=== PATIENT | female | born 1955 | race Caucasian/White ===

== ENCOUNTER 2020-04-01 09:15 | Outpatient (REF) | payer MEDICARE, MEDICAID, SELFPAY ==
[2020-04-01 11:30] LABS: Creatinine Urine 77.31 mg/dL; Microalbum/Creatinine Ratio Ur 7.7 ug/mg cr
== END 2020-04-01 09:16 | disposition home or self-care (01) ==
LOC: HO.LAB 09:15
PROVIDERS: PCP Physician Assistant; Visit Provider Nurse Practitioner Gerontology
DX: E11.42 Type 2 diabetes mellitus with diabetic polyneuropathy (principal)
CPT/HCPCS: 82043

== ENCOUNTER 2020-04-01 09:45 | Outpatient (REF) | payer MEDICARE, MEDICAID, SELFPAY | END 2020-04-01 09:46 | disposition home or self-care (01) | LOC: HO.LAB 09:45 | PROVIDERS: PCP Physician Assistant; Visit Provider Internal Medicine | DX: Z20.828 Contact with and (suspected) exposure to other viral communicable diseases (principal) | CPT/HCPCS: 82043; C9803; U0003 ==

== ENCOUNTER → 2020-04-06 12:15 | Outpatient (BNVA) | payer MEDICARE, MEDICAID, SELFPAY | PROVIDERS: PCP Physician Assistant; Visit Provider Nurse Practitioner Gerontology | DX: E11.42 Type 2 diabetes mellitus with diabetic polyneuropathy (principal); E78.5 Hyperlipidemia, unspecified | CPT/HCPCS: 82947; 99212 ==

== ENCOUNTER → 2020-07-28 12:58 | Outpatient (BNVA) | payer MEDICARE, MEDICAID, SELFPAY | PROVIDERS: PCP Physician Assistant; Visit Provider Nurse Practitioner Gerontology | DX: E11.42 Type 2 diabetes mellitus with diabetic polyneuropathy (principal); E66.09 Other obesity due to excess calories; E78.5 Hyperlipidemia, unspecified | CPT/HCPCS: 82947; 99212 ==

== ENCOUNTER 2020-08-03 14:19 | Outpatient (REF) | payer MEDICARE, MEDICAID, SELFPAY ==
--- NOTE | ~2020-08-03 | US_ITS ---
EXAMINATION: US DIAGNOSTIC ULTRASOUND BREAST, RIGHT CLINICAL INFORMATION: 65-year-old complains of pain lateral right breast. There is prior history posterior left breast calcifications recommended for stereotactic sampling, not performed. Patient due for bilateral mammography but declined by patient at time of appointment. COMPARISON: Mammography 12/24/2019 (left), 05/30/2019, 04/25/2019, 04/01/2019 (bilateral). TECHNIQUE: Ultrasound right breast is targeted to the area of clinical concern noted by patient 7:00 through 11:00 position. Grayscale imaging and color Doppler are performed without and with harmonics. FINDINGS: Ultrasound demonstrates no cystic or solid mass or architectural abnormality in the targeted area. There is no skin thickening or edema tracking in soft tissue planes. No focal duct ectasia. Results are discussed with the patient at time of visit, using an lang interpreter. Patient declined mammography at this appointment. Patient advised that she is past due for diagnostic mammography follow-up of the left breast calcifications previously recommended for biopsy, as well as past due for annual mammography contralateral right breast. US/US breast RT limited IMPRESSION: 1. Unremarkable targeted ultrasound outer right breast. 2. Patient declined mammography. ASSESSMENT: BI-RADS 1: Negative RECOMMENDATION: 1. Bilateral diagnostic mammography to include magnification views calcifications left breast. 2. Patient's right breast pain should be managed based on the clinical impression. This patient's information was entered into a reminder system with a target due date for their next mammogram.
== END 2020-08-03 14:20 | disposition home or self-care (01) ==
LOC: HO.MAMMO 14:19
PROVIDERS: Visit Provider Surgery
DX: N60.91 Unspecified benign mammary dysplasia of right breast (principal); R92.0 Mammographic microcalcification found on diagnostic imaging of breast; Z91.89 Other specified personal risk factors, not elsewhere classified
CPT/HCPCS: 76642

== ENCOUNTER → 2020-08-05 11:36 | Outpatient (BNVA) | payer MEDICARE, MEDICAID, SELFPAY | PROVIDERS: PCP Physician Assistant; Visit Provider Surgery | DX: N60.91 Unspecified benign mammary dysplasia of right breast (principal) | CPT/HCPCS: 99212 ==

== ENCOUNTER 2020-08-14 08:20 | Outpatient (REF) | payer MEDICARE, MEDICAID, SELFPAY ==
--- NOTE | ~2020-08-14 | MM_ITS ---
EXAMINATION: MM DIAGNOSTIC DIGITAL BREAST TOMOSYNTHESIS, BILATERAL CLINICAL INFORMATION: Due for yearly. Also short interval follow-up left breast calcifications recommended for stereotactic biopsy 04/25/2019. Prior history contralateral right breast ALH status post excision 10/18/2018. The lifetime risk of breast cancer based on the Tyrer-Cuzick Model is 42%. COMPARISON: Mammography: 12/24/2019, 04/25/2019 (BI-RADS 4), 04/01/2019 (BI-RADS 0), 03/05/2018 TECHNIQUE: Digital breast tomosynthesis is performed in both the craniocaudal and mediolateral oblique views along with computer-aided detection (CAD). Synthesized 2D images are generated from the tomosynthesis. Additional views are obtained: Exaggerated left CC, magnification left CC, magnification left ML. FINDINGS: The breasts are heterogeneously dense, which may obscure small masses (ACR BI-RADS breast composition Category c). The right breast has post therapy changes posterior 9:00 position consistent with the prior lumpectomy 2018. There is no interval mass or architectural abnormality or abnormal calcifications. There are scattered calcifications some punctate and coarse again noted. The left breast shows no interval mass or architectural abnormality or developing density. Again, there are vascular calcifications central upper outer breast and some scattered benign round and coarse calcifications. The grouped calcifications for follow-up posterior upper outer left breast that have been recommended for stereotactic sampling appear stable. Results are discussed with the patient at time of visit, using an calender tender. Stereotactic sampling discussed with the patient. As before, patient prefers serial follow-up. She also notes follow-up appointment with surgeon pending this year. MM/MM tomosynthesis diagnostic BI IMPRESSION: 1. Left: No significant changes from prior diagnostic studies. The grouped calcifications posterior upper outer quadrant previously recommended for sampling are stable. 2. Right: No mammographic evidence of malignancy. ASSESSMENT: BI-RADS 3: Probably Benign RECOMMENDATION: Diagnostic left mammography to include magnification views, in 6 months. This patient's information was entered into a reminder system with a target due date for their next mammogram.
== END 2020-08-14 08:21 | disposition home or self-care (01) ==
LOC: HO.MAMMO 08:20
PROVIDERS: Visit Provider Surgery
DX: R92.1 Mammographic calcification found on diagnostic imaging of breast (principal); Z85.3 Personal history of malignant neoplasm of breast
CPT/HCPCS: 77062; 77066

== ENCOUNTER 2021-01-22 10:05 | Outpatient (REF) | payer MEDICARE, SELFPAY ==
[2021-01-22 11:04] LABS: Estimated Average Glucose 146 mg/dL; Hemoglobin A1c % 6.7 %
[2021-01-22 11:14] LABS: Hematocrit 38.4 % (37-47); Hemoglobin 12.6 g/dl (12.0-16.0); Mean Corpuscular HGB Conc 32.8 g/dl (31.0-35.0); Mean Corpuscular Volume 91.4 fL (80-98); Mean Platelet Volume 9.2 fL (9.4-12.3); Platelet Count 238 X10*3/uL (160-400); Red Cell Distribution Width 12.7 % (11.0-16.0); White Blood Count 6.6 X10*3/uL (4.8-10.8)
[2021-01-22 11:17] LABS: Alanine Aminotransferase 13 U/L (0-31); Albumin Level 4.3 g/dL (3.5-5.0); Alkaline Phosphatase 112 U/L (39-117); Anion Gap 12 (12-20); Aspartate Amino Transferase 18 U/L (5-31); Bilirubin Direct 0.2 mg/dL (0.0-0.5); Bilirubin Total 0.6 mg/dL (0.0-1.0); Blood Urea Nitrogen 11 mg/dL (9-16); Calcium 9.5 mg/dL (8.4-10.2); Carbon Dioxide 27 mmol/L (22-29); Chloride 105 mmol/L (96-108); Cholesterol 175 mg/dL; Estimated Glomerular Filt Rate > 60; Glucose Random 137 mg/dL (60-115); HDL Cholesterol 32 mg/dL; LDL Cholesterol Calculated 102 mg/dl; Potassium 4.4 mmol/L (3.3-5.1); Sodium 140 mmol/L (135-145); Total Protein 7.4 g/dL (6.5-8.0); Triglycerides 208 mg/dL
[2021-01-22 11:39] LABS: Thyroid Stimulating Hormone 2.69 uIU/mL (0.32-4.0)
[2021-01-22 11:49] LABS: Folate 12.6 ng/mL (> or = 4.0); Vitamin B12 507 pg/mL (200-900)
[2021-01-27 13:36] LABS: Vitamin D 25-OH, D2 <4 ng/mL; Vitamin D 25-OH, D3 15 ng/mL; Vitamin D 25-OH, Total 15 ng/mL (30-100)
== END 2021-01-22 10:06 | disposition home or self-care (01) ==
LOC: HO.LAB 10:05
PROVIDERS: Nurse Practitioner Gerontology; PCP Physician Assistant; Visit Provider Internal Medicine
DX: E11.42 Type 2 diabetes mellitus with diabetic polyneuropathy (principal)
CPT/HCPCS: 36415; 80048; 80061; 80076; 82306; 82607; 82746; 83036; 84443; 85027

== ENCOUNTER → 2021-02-02 09:29 | Outpatient (BNVA) | payer MEDICARE, SELFPAY | PROVIDERS: PCP Physician Assistant; Referring Provider Physician Assistant; Visit Provider Surgery | DX: N60.91 Unspecified benign mammary dysplasia of right breast (principal) | CPT/HCPCS: 99212 ==

== ENCOUNTER 2021-02-25 11:10 | Outpatient (REF) | payer MEDICARE, SELFPAY ==
[2021-02-25 13:34] LABS: Creatinine Urine 31.25 mg/dL; Microalbumin Urine < 5.0 mg/L
== END 2021-02-25 11:11 | disposition home or self-care (01) ==
LOC: HO.LAB 11:10
PROVIDERS: PCP Physician Assistant; Visit Provider Nurse Practitioner Gerontology
DX: E11.42 Type 2 diabetes mellitus with diabetic polyneuropathy (principal); E78.5 Hyperlipidemia, unspecified; E66.09 Other obesity due to excess calories; Z68.31 Body mass index [BMI] 31.0-31.9, adult; Z71.3 Dietary counseling and surveillance; Z79.84 Long term (current) use of oral hypoglycemic drugs
CPT/HCPCS: 82043; 82947; 99212

== ENCOUNTER → 2021-03-02 10:05 | Outpatient (BNVA) | payer MEDICARE, SELFPAY | PROVIDERS: Visit Provider Obstetrics & Gynecology | DX: N89.8 Other specified noninflammatory disorders of vagina (principal) | CPT/HCPCS: 99202 ==

== ENCOUNTER 2021-04-28 09:51 | Outpatient (REF) | payer MEDICARE, SELFPAY | END 2021-04-28 09:52 | disposition home or self-care (01) | LOC: HO.LAB 09:51 | PROVIDERS: Visit Provider Obstetrics & Gynecology | DX: N89.8 Other specified noninflammatory disorders of vagina (principal) | CPT/HCPCS: 56605; 88305; 88312 ==

== ENCOUNTER 2021-05-19 10:36 | Outpatient (REF) | payer MEDICARE, SELFPAY ==
--- NOTE | ~2021-05-19 | MM_ITS ---
EXAMINATION: MM DIAGNOSTIC DIGITAL BREAST TOMOSYNTHESIS, LEFT CLINICAL INFORMATION: Stereotactic sampling recommended for grouped calcifications posterior upper outer left breast. Tissue sampling declined by patient. Prior history contralateral right breast ALH/LCIS excision 10/18/2018. The lifetime risk of breast cancer based on the Tyrer-Cuzick Model is 24%. COMPARISON: Mammography: 08/14/2020, 12/24/2019, 05/30/2019, 04/25/2019, 04/01/2019 (BI-RADS 0) TECHNIQUE: Digital breast tomosynthesis is performed in both the craniocaudal and mediolateral oblique views along with computer-aided detection (CAD). Synthesized 2D images are generated from the tomosynthesis. Additional CC view, magnification CC, and magnification ML x2 views are obtained. FINDINGS: The breasts are heterogeneously dense, which may obscure small masses (ACR BI-RADS breast composition Category c). Fibronodular parenchymal pattern is similar to prior studies. No developing density or interval mass or architectural abnormality. There are scattered round and vascular calcifications again seen. The grouped calcifications posterior upper outer quadrant previously recommended for stereotactic sampling are without significant change from prior diagnostic exams. Results are provided to the patient at time of visit by the technologist. MM/MM tomosynthesis diagnostic LT IMPRESSION: Grouped calcifications recommended for stereotactic sampling are without significant change from prior diagnostic exams. ASSESSMENT: BI-RADS 3: Probably Benign RECOMMENDATION: 1. Magnification views left breast at time of annual bilateral mammography, due in 6 months. 2. The lifetime risk of breast cancer based on the Tyrer-Cuzick Model is 24%. Additional annual adjunct screening with breast MRI may be of benefit in women with a risk score of 20% or greater and dense breast parenchymal pattern. This patient's information was entered into a reminder system with a target due date for their next mammogram.
== END 2021-05-19 10:37 | disposition home or self-care (01) ==
LOC: HO.MAMMO 10:36
PROVIDERS: PCP Physician Assistant; Visit Provider Surgery
DX: R92.1 Mammographic calcification found on diagnostic imaging of breast (principal); N89.8 Other specified noninflammatory disorders of vagina; N90.89 Other specified noninflammatory disorders of vulva and perineum; E78.5 Hyperlipidemia, unspecified; E03.9 Hypothyroidism, unspecified; E11.42 Type 2 diabetes mellitus with diabetic polyneuropathy; E66.09 Other obesity due to excess calories; F17.210 Nicotine dependence, cigarettes, uncomplicated
CPT/HCPCS: 77061; 77065; Q3014

== ENCOUNTER → 2021-06-09 10:02 | Outpatient (BNVA) | payer MEDICARE, SELFPAY | PROVIDERS: Visit Provider Obstetrics & Gynecology | DX: Z13.89 Encounter for screening for other disorder (principal) ==

== ENCOUNTER → 2021-08-26 10:53 | Outpatient (BNVA) | payer MEDICARE, SELFPAY | PROVIDERS: PCP Physician Assistant; Visit Provider Nurse Practitioner Gerontology | DX: E11.42 Type 2 diabetes mellitus with diabetic polyneuropathy (principal); E78.5 Hyperlipidemia, unspecified; E66.09 Other obesity due to excess calories; Z68.31 Body mass index [BMI] 31.0-31.9, adult | CPT/HCPCS: 82947; 83036; 99212 ==

== ENCOUNTER 2022-01-31 10:11 | Outpatient (REF) | payer MEDICARE, SELFPAY ==
[2022-01-31 11:42] LABS: Hematocrit 38.6 % (37.0-47.0); Hemoglobin 12.7 g/dl (12.0-16.0); Mean Corpuscular HGB Conc 32.9 g/dl (31.0-35.0); Mean Corpuscular Hemoglobin 30.3 pg (27.0-33.0); Mean Corpuscular Volume 92.1 fL (80.0-98.0); Mean Platelet Volume 9.6 fL (9.4-12.3); Platelet Count 262 X10*3/uL (160-400); Red Blood Count 4.19 X10*6/uL (4.20-5.50); Red Cell Distribution Width 12.3 % (11.0-16.0); White Blood Count 6.4 X10*3/uL (4.8-10.8)
[2022-01-31 12:19] LABS: Alanine Aminotransferase 16 U/L (0-31); Albumin Level 4.4 g/dL (3.5-5.0); Alkaline Phosphatase 131 U/L (39-117); Anion Gap 14 (12-20); Aspartate Amino Transferase 17 U/L (5-31); Bilirubin Total 0.4 mg/dL (0.0-1.0); Blood Urea Nitrogen 9 mg/dL (9-16); Calcium 9.3 mg/dL (8.4-10.2); Carbon Dioxide 26 mmol/L (22-29); Chloride 103 mmol/L (96-108); Cholesterol 177 mg/dL; Estimated Glomerular Filt Rate > 60; Glucose Fasting 150 mg/dL (60-99); HDL Cholesterol 33 mg/dL; LDL Cholesterol Calculated 103 mg/dl; Potassium 4.2 mmol/L (3.3-5.1); Sodium 139 mmol/L (135-145); Total Protein 7.5 g/dL (6.5-8.0); Triglycerides 206 mg/dL
[2022-01-31 12:32] LABS: TSH reflex Free T4 2.21 uIU/mL (0.32-4.0); Vitamin D 25-OH Total 22.1 ng/mL (>30)
[2022-01-31 12:45] LABS: Creatinine Urine 94.71 mg/dL; Microalbum/Creatinine Ratio Ur 6.3 ug/mg cr
== END 2022-01-31 10:12 | disposition home or self-care (01) ==
LOC: HO.LAB 10:11
PROVIDERS: Nurse Practitioner Gerontology; PCP Physician Assistant; Visit Provider Physician Assistant
DX: E11.42 Type 2 diabetes mellitus with diabetic polyneuropathy (principal); E55.9 Vitamin D deficiency, unspecified
CPT/HCPCS: 36415; 80053; 80061; 82043; 82306; 84443; 85027

== ENCOUNTER 2022-03-22 08:45 | Outpatient (REF) | payer MEDICARE, SELFPAY ==
--- NOTE | ~2022-03-22 | US_ITS ---
EXAMINATION: US DIAGNOSTIC ULTRASOUND BREAST, BILATERAL CLINICAL INFORMATION: 67-year-old with chronic intermittent right breast pain since 2019. No pain today. No palpable mass. Personal history right ALH/LCIS status post excision 10/18/2018. Calcifications posterior outer left breast recommended for stereotactic sampling declined by patient past. COMPARISON: Left mammography 10/17/2021, bilateral mammography 08/14/2020, right breast ultrasound 08/03/2020. TECHNIQUE: Ultrasound right breast is targeted to the areas of intermittent pain. Exam is focused in the outer quadrants with additional evaluation 12:00 through 6:00. FINDINGS: There is some minor scarring in the outer breast consistent with the prior lumpectomy. There is no solid mass or suspicious architectural changes, duct ectasia, or edema tracking in the soft tissue planes. No skin thickening. Results are discussed with the patient at time of visit using an interpreter for the deaf. Patient is due for bilateral annual mammography and follow-up of the left breast calcifications. Patient declined mammography at time of appointment. She notes upcoming appointment with her surgeon next month. US/US breast RT limited IMPRESSION: -Unremarkable right breast ultrasound. ASSESSMENT: BI-RADS 2: Benign RECOMMENDATION: -Patient due for annual mammography and follow-up left breast calcifications (declined at today's appointment). -Patient to keep her appointment with surgeon scheduled for next month.
== END 2022-03-22 08:46 | disposition home or self-care (01) ==
LOC: HO.MAMMO 08:45
PROVIDERS: PCP Physician Assistant; Visit Provider Surgery
DX: N64.4 Mastodynia (principal)
CPT/HCPCS: 76642

== ENCOUNTER → 2022-04-07 08:58 | Outpatient (BNVA) | payer MEDICARE, SELFPAY | PROVIDERS: PCP Physician Assistant; Visit Provider Surgery | DX: N60.91 Unspecified benign mammary dysplasia of right breast (principal) | CPT/HCPCS: 99212 ==

== ENCOUNTER 2022-08-12 08:11 | Outpatient (REF) | payer MEDICARE, SELFPAY ==
[2022-08-12 08:31] LABS: Hematocrit 36.8 % (37.0-47.0); Hemoglobin 12.1 g/dl (12.0-16.0); Mean Corpuscular HGB Conc 32.9 g/dl (31.0-35.0); Mean Corpuscular Volume 91.3 fL (80.0-98.0); Platelet Count 243 X10*3/uL (160-400); Red Blood Count 4.03 X10*6/uL (4.20-5.50); Red Cell Distribution Width 12.6 % (11.0-16.0); White Blood Count 7.7 X10*3/uL (4.8-10.8)
[2022-08-12 09:13] LABS: Alanine Aminotransferase 11 U/L (0-31); Alkaline Phosphatase 111 U/L (39-117); Anion Gap 10 (12-20); Aspartate Amino Transferase 13 U/L (5-31); Bilirubin Total 0.4 mg/dL (0.0-1.0); Blood Urea Nitrogen 13 mg/dL (9-16); Calcium 9.3 mg/dL (8.4-10.2); Carbon Dioxide 28 mmol/L (22-29); Chloride 105 mmol/L (96-108); Cholesterol 238 mg/dL; Estimated Glomerular Filt Rate > 60; Glucose Fasting 150 mg/dL (60-99); HDL Cholesterol 30 mg/dL; LDL Cholesterol Calculated 176 mg/dl; Potassium 4.1 mmol/L (3.3-5.1); Sodium 139 mmol/L (135-145); Total Protein 6.8 g/dL (6.5-8.0); Triglycerides 162 mg/dL
[2022-08-12 09:28] LABS: TSH reflex Free T4 6.21 uIU/mL (0.32-4.0)
[2022-08-12 11:05] LABS: Free T4 (Free Thyroxine) 0.94 ng/dL (0.71-1.85)
== END 2022-08-12 08:12 | disposition home or self-care (01) ==
LOC: HO.LAB 08:11
PROVIDERS: PCP Physician Assistant; Visit Provider Physician Assistant
DX: E11.42 Type 2 diabetes mellitus with diabetic polyneuropathy (principal)
CPT/HCPCS: 36415; 80053; 80061; 84439; 84443; 85027

== ENCOUNTER → 2022-10-07 09:13 | Outpatient (BNVA) | payer MEDICARE, SELFPAY | PROVIDERS: PCP Physician Assistant; Visit Provider Surgery | DX: N60.91 Unspecified benign mammary dysplasia of right breast (principal) | CPT/HCPCS: 99212 ==

== ENCOUNTER 2022-10-13 10:48 | Outpatient (REF) | payer MEDICARE, SELFPAY ==
--- NOTE | ~2022-10-13 | XR_ITS ---
EXAMINATION: XR HIP, RIGHT CLINICAL INFORMATION: Right hip pain. COMPARISON: None available. TECHNIQUE: Two views of the right hip. FINDINGS: The glenohumeral joint does not appear significantly narrowed. Some minimal sclerosis seen of the acetabulum. No fractures or dislocations. Some mild degenerative changes/osteophytes are present around the greater trochanter which can be seen with bursitis. XR/XR hip RT min 2V IMPRESSION: No evidence of an acute injury. Mild degenerative changes as described above.
== END 2022-10-13 10:49 | disposition home or self-care (01) ==
LOC: HO.XRAY 10:48
PROVIDERS: PCP Physician Assistant; Visit Provider Physician Assistant
DX: M25.551 Pain in right hip (principal)
CPT/HCPCS: 73502

== ENCOUNTER 2023-02-07 10:15 | Outpatient (REF) | payer MEDICARE, SELFPAY | END 2023-02-07 10:16 | disposition home or self-care (01) | LOC: HO.LAB 10:15 | PROVIDERS: PCP Physician Assistant; Visit Provider Physician Assistant | DX: E11.42 Type 2 diabetes mellitus with diabetic polyneuropathy (principal) | CPT/HCPCS: 36415; 80053; 80061; 82043; 82570; 83036; 85027 ==

== ENCOUNTER 2023-02-08 13:38 | Outpatient (AMB) | payer MEDICARE, SELFPAY ==
--- NOTE | 2023-02-08 13:46 | A.OFFPC_ITS ---
Vital Signs 02/08/23 13:47 Height 5 ft 3 in Weight 157 lb BMI 27.8 BP 118/70 Blood Pressure Location Lt brachial Position Sitting Respiration 17 Pulse 75 Pulse Source Pulse Oximeter Pulse Oximetry (%) 98 Oxygen Delivery Method Room Air Intake Visit Reasons: PE Intake Note: Patient is here today for a physical. Pt is requesting Permethrin for possible scabies on foot. 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 Accompanied by: Spouse Allergies No Known Allergies [No Known Allergies*] Allergy (Verified 02/08/23 14:13) Medication List - Last Reconciled 02/08/23 by Terrance Sarabia PA-C acetaminophen ER (Mapap Arthritis Pain) 650 mg PO Q12H 30 days aspirin 81 mg PO DAILY atorvastatin 80 mg PO BEDTIME 90 days cholecalciferol (vitamin D3) 50 mcg PO DAILY 90 days levothyroxine 88 mcg PO DAILY metformin ER 750 mg PO DAILY omeprazole 20 mg PO DAILY pen needle, diabetic (Comfort Touch Pen Needle) As directed three times a day Tobacco use date assessed: 08/15/22 Fall risk assessment: No Falls in past year Last assessed Fall Risk: 02/08/23 Dental Screening Dental Screen Date: 02/08/23 Did you have a dental visit in the last 12 months?: Yes Did you have a dental problem in the last 6 months where you did not have access to dental care?: No Was dental information given to patient?: Patient has dentist HPI PE HPI Details Patient is a 67 female here today for a routine annual physical.? Patient has a past medical history significant for type 2 diabetes, hyperlipidemia, obesity, abnormal mammogram findings, hypothyroidism. Concerns--> she reports having a low appetite as of lately. She denies any at depression. Have noted weight loss since last office visit in the setting of being more consistent with taking her levothyroxine. She also does report having much more nocturia and some dark color urine at times. PLAN: Does have history of cystocele which is likely the cause of her urinary f requency. She is willing to do pelvic floor therapy. Will get urinalysis to evaluate for UTI. .. Hypothyroid: Restarted Levothyroxizine . CHRONIC MEDICAL CONDITIONS--> DMII:? Has started taking her diabetic medication again and A1c now is 6.2. Fasting blood sugar much improved. .. Abnormal mammogram:? Most recent mammogram stable need 6 months follow-up.? Has seen a breast surgeon and gotten biopsy with benign findings .. Osteoarthritis:? She does use Tylenol arthritis with decent affect on reducing her pain.? .. Hyperlipidemia: Patient's most recent fasting lipid panel much improved since restarting statin therapy. Mammogram: Has abnormal mammogram- needed followup US q 3 months. Followed by general surgeon, needs follow-up mammogram Colon cancer screening: done in 2018- tubular adenoma, repeat in 5 years Vaccines: Declines COVID, pneumonia and flu vaccine Laboratory Tests 08/12/22 08/15/22 02/07/23 08:20 15:46 10:35 RBC 4.03 L Creatinine 0.72 Fasting Glucose 150 H Hgb A1c (Clinic) 6.4 H Hemoglobin A1c % 6.2 H Cholesterol LDL Cholesterol, C alc Urine Microalbumin 02/07/23 02/07/23 02/07/23 10:35 10:35 10:45 RBC 4.35 Creatinine Fasting Glucose Hgb A1c (Clinic) Hemoglobin A1c % Cholesterol 119 LDL Cholesterol, C alc 72 Urine Microalbumin 7.0 [facility] Medical History Obesity due to excess calories Carpal tunnel syndrome Arthritis Colon polyps Hypothyroidism Type 2 diabetes mellitus with diabetic polyneuropathy Hyperlipidemia LDL goal <100 Surgical History History of total abdominal hysterectomy History of total vaginal hysterectomy (TVH) Hx of breast biopsy History of section History of hysterectomy Family History Father Esophageal cancer Mother No problems noted. Maternal Grandmother Cancer Paternal Grandfather Cancer Leukemia Maternal Aunt Cancer Paternal Uncle Cancer Social History Household Members: Spouse and Children Household Members Other:: son, Housing: House Alcohol intake: never Patient Tobacco Use Status: Never used Tobacco Tobacco use type: Cigarette e-Cigarette/Vaping Use: Never Used Second Hand Smoke Exposure: No service: No Current occupational status: unemployed and disabled Cognitive needs: No Hearing needs: No Vision needs: No Female Reproductive History Menstrual Age of Menarche: 13 Questionnaire Thrive Questionnaire Date Thrive assessed: 08/15/22 ADRIAN-7 AMB Questionnaire ADRIAN-7 Date ADRIAN - 7 assessed: 08/15/22 Source: Developed by Drs. Mark Gonzalez, Carole Bang, Job Verduzco and colleagues, with an educational clare from [employer]. Review of Systems Const Denies body aches, Denies chills, Denies excessive sweating, Denies fatigue, Denies fever(s) and Denies headache(s) Eyes Denies blurry vision ENT Denies dysphagia, Denies vertigo, Denies dizziness, Denies headache(s), Denies hearing loss and Denies tinnitus Card Denies chest pain, Denies chest pain with activity, Denies syncope, Denies irregular heart rhythm and Denies dyspnea Resp Denies chest congestion, Denies cough, Denies hemoptysis, Denies dyspnea and Denies wheezing GI Denies abdominal pain, Denies melena, Denies hematochezia, Denies coffee ground emesis, Denies dysphagia, Denies diarrhea, Denies nausea and Denies vomiting Denies urinary frequency, Denies dysuria, Denies urinary hesitancy and Denies urinary urgency Musc Denies arthralgias, Denies limited range of motion, Denies muscle cramps and Denies muscle weakness Skin/Breast Denies rash and Denies skin ulcer Neuro Denies Abnormal speech present, Denies confusion, Denies vertigo, Denies dizziness, Denies syncope, Denies headache(s), Denies memory loss and Denies seizure-like activity Psych Denies anxiety, Denies confusion, Denies depression, Denies memory loss, Denies panic attacks and Denies paranoia Endo Denies excessive sweating, Denies fatigue, Denies flushing, Denies polydipsia and Denies polyuria Aller/Immun Denies wheezing Physical exam (Primary Care) Vital Signs: Last Vital Signs Pulse 75 02/08/23 13:47 Resp 17 02/08/23 13:47 BP 118/70 02/08/23 13:47 Pulse Ox 98 02/08/23 13:47 Oxygen Delivery Method Room Air 02/08/23 13:47 BMI result Body Mass Index 27.8 Tobacco/Smoking Status: Tobacco use Status Tobacco use date assessed 08/15/22 02/08/23 13:47 Patient Tobacco Use Status Never used Tobacco 02/08/23 13:47 Tobacco use type Cigarette 02/08/23 13:47 e-Cigarette/Vaping Use Never Used 02/08/23 13:47 Thrive Assessment: Date of Thrive Assessment Date Thrive assessed 08/15/22 02/08/23 13:47 Const General: cooperative, comfortable, no acute distress, alert and awake; No confusion Orientation/consciousness: oriented to person, oriented to place, patient oriented x3 and No confusion HENMT Head: Yes normocephalic Ears: external ears normal and TM's normal bilaterally Face and sinus: No sinus tenderness Mouth: Normal oral and palatal mucosa present and tongue normal Teeth and gingiva: dentition normal and gingiva normal Throat: Yes posterior oropharynx normal, Yes tonsils normal and Yes uvula midline Eyes Conjunctivae: conjunctivae normal Sclerae: sclerae normal Pupils: Equal, round and reactive pupils present EOM: EOMs intact bilaterally Direct Ophthalmoscopy: No no photophobia Neck Neck: Yes no lymphadenopathy, No tender and Yes no JVD Thyroid: Thyroid normal Carotids: no bruits Chest Chest palpation & inspection: no tenderness Resp Effort & Inspection: normal respiratory effort, no audible wheezes, not labored and no stridor Auscultation: no crackles, no rales, no rhonchi and no wheezes Cardio Jugular venous distension: no JVD Rate: regular rate, not bradycardic and not tachycardic Rhythm: regular rhythm Bruits: no carotid bruits Peripheral pulses: Peripheral pulses 2+ throughout GI Inspection: Yes normal to inspection, No abdominal wall ecchymosis and No visible herniation Palpation (GI): Soft to palpation, nontender, no guarding, not rigid and No hepatosplenomegaly present Auscultation: normoactive bowel sounds General: Yes no CVA tenderness Back/Spine/Pelvis Back: no CVA tenderness and No back tenderness Cervical Spine: cervical ROM normal Thoracic/Lumbar Spine: thoracic and lumbar spine normal to inspection, straight leg raise negative bilaterally, No thoraco-lumbar ROM limited and No lumbar spinal tenderness Skin Lesions: no lesions Rashes: no rashes Wounds: no wounds Neuro General: oriented to person, oriented to place, patient oriented x3, CN's II-XI intact bilaterally and No confusion Cranial nerves: Yes Equal, round and reactive pupils present and Yes Normal accommodation reflex present Cognition (Neuro): normal cognition Speech: No Abnormal speech present Gait exam (Neuro): Normal gait present Motor exam (neuro): 5/5 motor strength present throughout Extrem Right upper extremity: full ROM; no cyanosis Left upper extremity: full ROM; no cyanosis Right lower extremity: no edema Left lower extremity: no edema Psych Appearance: grossly normal Mental Status: mental status grossly normal Affect: normal affect Attitude: cooperative Thought process: Normal thought process present Assessment and Plan Assessment & Plan (1) Annual physical exam: Code(s): Z00.00 - Encounter for general adult medical examination without abnormal findings (2) Type 2 diabetes mellitus with diabetic polyneuropathy: Code(s): E11.42 - Type 2 diabetes mellitus with diabetic polyneuropathy Qualifiers: Diabetes mellitus custodial insulin use: without long lines operator use Qualified Code(s): E11.42 - Type 2 diabetes mellitus with diabetic polyneuropathy Plan: Patient's type 2 diabetes controlled with current dose of metformin and lifestyle modifications. Most recent A1c is 6.2 Has been able to lose weight since last office visit. Advised to continue metformin 750 mg extended release. Goal A1c to be below 7.0 (3) Hyperlipidemia LDL goal <100: Code(s): E78.5 - Hyperlipidemia, unspecified Plan: Most recent lipid panel showing appropriate total cholesterol and LDL. Has restarted taking her cholesterol medication and LDL now I goal below 100. . (4) Hypothyroidism: Code(s): E03.9 - Hypothyroidism, unspecified Qualifiers: Hypothyroidism type: unspecified Qualified Code(s): E03.9 - Hypothyroidism, unspecified Plan: Has restarted taking levothyroxine and thus will recheck TSH to assure normal. l (5) Atypical lobular hyperplasia of right breast: Code(s): N60.91 - Unspecified benign mammary dysplasia of right breast Plan: Has history of atypical hyperplasia of both breasts. She is due for screening mammogram thus I will place referral. Has upcoming appointment with general surgeon. (6) Tubular adenoma of colon: Code(s): D12.6 - Benign neoplasm of colon, unspecified Plan: Has history of colonoscopy in 2018 and polyp found that is tubular adenomatous, needs repeat colonoscopy (7) Tinea pedis: Code(s): B35.3 - Tinea pedis Qualifiers: Laterality: bilateral Qualified Code(s): B35.3 - Tinea pedis Plan: Have signs and symptoms consistent with tinea pedis. Will supply patient with topical antifungal cream. Orders: Orders Lipid Panel Today E78.5 - Hyperlipidemia, unspecified TSH reflex Free T4 Today E03.9 - Hypothyroidism, unspecified UA CC w/rflx Micro + Cult Today N81.11 - Cystocele, midline, R30.0 - Dysuria MM screening mammo BI Today Z12.31 - Encounter for screening mammogram for malignant neoplasm of breast Comprehensive [place]. Panel Fast Today E78.5 - Hyperlipidemia, unspecified Complete Blood Count no Diff Today E11.42 - Type 2 diabetes mellitus with diabetic polyneuropathy Referrals Gastroenterology Referral D12.6 - Benign neoplasm of colon, unspecified Pelvic Dog Track Kennel Manager Referral R35.1 - Nocturia Medications: New ciclopirox 0.77% 1 appl topical BID 4 weeks 30 grams 1RF B35.3 - Tinea pedis Changed From metformin ER 750 mg PO DAILY 90 tabs 3RF E11.42 - Type 2 diabetes mellitus with diabetic polyneuropathy To metformin ER 750 mg PO DAILY 90 days 90 tabs 1RF E11.42 - Type 2 diabetes mellitus with diabetic polyneuropathy Refilled acetaminophen ER (Mapap Arthritis Pain) 650 mg PO Q12H 30 days 60 tabs 6RF M19.049 - Primary osteoarthritis, unspecified hand cholecalciferol (vitamin D3) 50 mcg PO DAILY 90 days 90 caps 1RF E55.9 - Vitamin D deficiency, unspecified levothyroxine 88 mcg PO DAILY 90 tabs 1RF E03.9 - Hypothyroidism, unspecified atorvastatin 80 mg PO BEDTIME 90 days 90 tabs 2RF E11.42 - Type 2 diabetes mellitus with diabetic polyneuropathy Discontinued pen needle, diabetic (Comfort Touch Pen Needle) Discontinued Reason: Doctor's Order As directed three times a day 100 ea 1 1RF E11.42 - Type 2 diabetes mellitus with diabetic polyneuropathy Coding Level of Care Code Est Pt Prev Care >65y(49702) Diagnoses Annual physical exam Z00.00 Type 2 diabetes mellitus with diabetic polyneuropathy, without long-term current use of insulin E11.42 Diabetes mellitus long lines operator insulin use: without custodial use Hyperlipidemia LDL goal <100 E78.5 Hypothyroidism, unspecified type E03.9 Hypothyroidism type: unspecified Atypical lobular hyperplasia of right breast N60.91 Tubular adenoma of colon D12.6 Tinea pedis of both feet B35.3 Laterality: bilateral
[2023-02-08 13:47] VITALS: BP 118/70; PULSE 75; RESP 17; O2SAT 98; BMI 27.8
== END 2023-02-08 15:08 | disposition home or self-care (01) ==
PROVIDERS: PCP Physician Assistant; Visit Provider Physician Assistant
DX: Z00.00 Encounter for general adult medical examination without abnormal findings (principal); E11.42 Type 2 diabetes mellitus with diabetic polyneuropathy; E78.5 Hyperlipidemia, unspecified; E03.9 Hypothyroidism, unspecified; N60.91 Unspecified benign mammary dysplasia of right breast; D12.6 Benign neoplasm of colon, unspecified; B35.3 Tinea pedis
CPT/HCPCS: 99397

== ENCOUNTER 2023-07-06 07:41 | Outpatient (AMB) | payer MEDICARE, SELFPAY ==
[2023-07-06 07:53] VITALS: BP 122/78; PULSE 77; O2SAT 98; BMI 29.0
--- NOTE | 2023-07-06 07:53 | A.OFFPC_ITS ---
Vital Signs 07/06/23 07:53 Height 5 ft 3 in Weight 164 lb BMI 29.0 BP 122/78 Blood Pressure Location Lt brachial Position Sitting Pulse 77 Pulse Source Pulse Oximeter Pulse Oximetry (%) 98 Oxygen Delivery Method Room Air Intake Visit Reasons: Follow up Allergies No Known Allergies [No Known Allergies*] Allergy (Verified 07/06/23 08:05) Medication List - Last Reconciled 07/06/23 by Terrance Sarabia PA-C acetaminophen ER (Mapap Arthritis Pain) 650 mg PO Q12H 30 days aspirin 81 mg PO DAILY atorvastatin 80 mg PO BEDTIME 90 days cholecalciferol (vitamin D3) 50 mcg PO DAILY 90 days ciclopirox 0.77% 1 appl topical BID 4 weeks levothyroxine 88 mcg PO DAILY metformin ER 750 mg PO DAILY 90 days omeprazole 20 mg PO DAILY Tobacco use date assessed: 07/06/23 Fall risk assessment: No Falls in past year Last assessed Fall Risk: 07/06/23 Dental Screening Dental Screen Date: 07/06/23 Did you have a dental visit in the last 12 months?: Yes Did you have a dental problem in the last 6 months where you did not have access to dental care?: No Was dental information given to patient?: Patient has dentist HPI Follow up HPI Details Patient is a 68 female here today for a follow-up visit.? Patient has a past medical history significant for type 2 diabetes, hyperlipidemia, obesity, abnormal mammogram findings, hypothyroidism. UNFORTUNATELY DID NOT GET LABS DONE FOR TODAY'S VISIT. Concerns--> no concerns today Hypothyroid: Has restarted levothyroxine, no repeat TSH at this time. Will recheck TSH before annual physical. . CHRONIC MEDICAL CONDITIONS--> DMII:? Has started taking her diabetic medication again and A1c now is 7.1. Has gained a small amount of weight since last office visit. Does admit to dietary indiscretion. .. Abnormal mammogram:? Most recent mammogram stable need 6 months follow-up.? Has seen a breast surgeon and gotten biopsy with benign findings .. Osteoarthritis:? She does use Tylenol arthritis with decent affect on reducing her pain.? .. Hyperlipidemia: Patient's most recent fasting lipid panel much improved since restarting statin therapy. [facility] Medical History (Updated 07/06/23 @ 08:37 by Terrance Sarabia PA-C) Cystocele Obesity due to excess calories Carpal tunnel syndrome Arthritis Colon polyps Hypothyroidism Type 2 diabetes mellitus with diabetic polyneuropathy Hyperlipidemia LDL goal <100 Surgical History History of total abdominal hysterectomy History of total vaginal hysterectomy (TVH) Hx of breast biopsy History of section History of hysterectomy Family History Father Esophageal cancer Mother No problems noted. Maternal Grandmother Cancer Paternal Grandfather Cancer Leukemia Maternal Aunt Cancer Paternal Uncle Cancer Social History Household Members: Spouse and Children Household Members Other:: son, Housing: House Alcohol intake: never Patient Tobacco Use Status: Never used Tobacco Tobacco use type: Cigarette e-Cigarette/Vaping Use: Never Used Second Hand Smoke Exposure: No service: No Current occupational status: unemployed and disabled Cognitive needs: No Hearing needs: No Vision needs: Yes Female Reproductive History Menstrual Age of Menarche: 13 Questionnaire PHQ-9 Over the last 2 weeks, how often have you been bothered by any of the following problems? 1. Little interest or pleasure in doing things: several days 2. Feeling down, depressed, or hopeless: not at all 3. Trouble falling or staying asleep, or sleeping too much: not at all 4. Feeling tired or having little energy: several days 5. Poor appetite or overeating: several days 6. Feeling bad about yourself - or that you are a failure or have let yourself or your family down: not at all 7. Trouble concentrating on things, such as reading the newspaper or watching television: several days 8. Moving or speaking so slowly that other people could have noticed. Or the opposite - being so fidgety or restless that you have been moving around a lot more than usual: not at all 9. Thoughts that you would be better off or of hurting yourself in some way: not at all Total score: 4 Depression Screening Interpretation: Positive Depression Screening Follow-up: Existing condition and Declines treatment Depression Screening Done: Yes 46501 - PHQ-9 Billing: Yes Source: Developed by Drs. Mark Gonzalez, Job More and colleagues, with an educational clare from [employer]. Thrive Questionnaire Date Thrive assessed: 07/06/23 I am a: Patient What is your living situation today?: I have a steady place to live Within the past 12 months, did the food you bought not last and you didn't have the money to get more?: Never true Within the past 12 months, did you worry whether your food would run out before you got money to buy more?: Never true Do you have trouble paying for medicines?: No Do you have trouble getting transportation to medical appointments?: No Do you have trouble paying your heating and electricity bill?: No Do you have trouble taking care of your child, family member or friend?: No Do you have trouble with day-to-day activities such as bathing, preparing meals, shopping, managing finances, etc.?: No Are you currently unemployed and looking for a job?: No Are you interested in more education?: No Currently or been in a relationship where the following occur: no concerns reported THRIVE Score: 0 AUDIT C Alcohol Use Questionnaire (AUDIT-C) 1. How often do you have a drink containing alcohol?: Never 3. How often do you have six or more drinks on one occasion?: Never Total Score: 0 ADRIAN-7 AMB Questionnaire ADRIAN-7 Date ADRIAN - 7 assessed: 07/06/23 Feeling nervous, anxious, or on edge: 1 = Several days Not being able to stop or control worryin = Several days Worrying too much about different things: 1 = Several days Trouble relaxin = Not at all Being so restless that it is hard to sit still: 0 = Not at all Becoming easily annoyed or irritable: 0 = Not at all Feeling afraid as if something awful might happen: 0 = Not at all Total ADRIAN-7 score (0-4 normal; 5-9 mild; 10-14 moderate; 15-21 severe): 3 Source: Developed by Drs. Mark Gonzalez, Job More and colleagues, with an educational clare from [employer]. ADRIAN-7 Assessment Billing ADRIAN-7 Assessment Tool: ADRIAN-7 Assessment 00126 Review of Systems Const Denies headache(s) Eyes Denies loss of vision ENT Denies vertigo, Denies dizziness, Denies headache(s) and Denies sore throat Card Denies chest pain, Denies leg edema and Denies lightheadedness Resp Denies cough, Denies hemoptysis and Denies wheezing GI Denies abdominal pain, Denies melena, Denies constipation, Denies diarrhea and Denies vomiting Denies urinary frequency, Denies dysuria and Denies urinary urgency Musc Denies arthralgias, Denies joint swelling, Denies numbness and Denies tingling Neuro Denies Abnormal speech present, Denies behavioral changes, Denies vertigo, Denies dizziness, Denies headache(s), Denies loss of vision, Denies memory loss, Denies numbness and Denies tingling Psych Denies anxiety, Denies behavioral changes, Denies depression, Denies memory loss and Denies panic attacks Perez/Lymph Denies easy bleeding and Denies easy bruising Aller/Immun Denies wheezing Physical exam (Primary Care) Vital Signs: Last Vital Signs Pulse 77 07/06/23 07:53 BP 122/78 07/06/23 07:53 Pulse Ox 98 07/06/23 07:53 Oxygen Delivery Method Room Air 07/06/23 07:53 BMI result Body Mass Index 29.0 Tobacco/Smoking Status: Tobacco use Status Tobacco use date assessed 07/06/23 07/06/23 08:01 Patient Tobacco Use Status Never used Tobacco 07/06/23 07:54 Tobacco use type Cigarette 07/06/23 07:54 e-Cigarette/Vaping Use Never Used 07/06/23 07:54 PHQ-9: PHQ-9 Score PHQ-9: Total score 4 07/06/23 08:09 Depression Screening Interpretation: Positive Depression Screening Follow-up: Existing condition and Declines treatment Thrive Assessment: Date of Thrive Assessment Date Thrive assessed 07/06/23 07/06/23 08:01 Currently or been in a relationship where the following occur: no concerns reported Const General: healthy appearing, no acute distress, alert and awake Nutritional Appearance: well nourished Orientation/consciousness: oriented to person, oriented to place and oriented to time HENMT Ears: TM's normal bilaterally General nose exam: Normal nasal mucous membranes and turbinates present Eyes Conjunctivae: conjunctivae normal Sclerae: sclerae normal Pupils: Equal, round and reactive pupils present Neck Neck: Yes no lymphadenopathy and Yes no JVD Thyroid: Thyroid normal Carotids: no bruits Resp Effort & Inspection: normal respiratory effort and not tachypneic Auscultation: no crackles, no rales, no rhonchi and no wheezes Cardio Rate: regular rate Rhythm: regular rhythm Heart sounds: no murmurs and normal S1 and S2 GI Palpation (GI): Soft to palpation, nontender, no hepatomegaly and no splenomegaly Auscultation: normal bowel sounds Skin General skin exam: no rashes or lesions noted and dry skin Neuro General: oriented to person, oriented to place and oriented to time Cranial nerves: Yes Equal, round and reactive pupils present Speech: No Abnormal speech present Gait exam (Neuro): Normal gait present Motor exam (neuro): no tremor noted Extrem Right upper extremity: full ROM Left upper extremity: full ROM Right lower extremity: full ROM; no edema Left lower extremity: full ROM; no edema Psych Mental Status: mental status grossly normal Speech and movement: Normal speech and movement present Affect: normal affect Attitude: cooperative Thought process: Normal thought process present Results AMB Hemoglobin A1c AMB Hemoglobin A1c 7.1 % Last Edit by Madeleine Lacy CMA on 07/06/23 08 :20 Assessment and Plan Assessment & Plan (1) Type 2 diabetes mellitus with diabetic polyneuropathy: Code(s): E11.42 - Type 2 diabetes mellitus with diabetic polyneuropathy Qualifiers: Diabetes mellitus assisted insulin use: without assisted use Qualified Code(s): E11.42 - Type 2 diabetes mellitus with diabetic polyneuropathy Plan: Patient's type 2 diabetes suboptimally controlled with A1c today is 7.1 from 6.2. Has noted small amount of weight gain since last office visit. She does admit to some dietary indiscretion.. Will continue her on current dose of metformin, she will work diligently on diabetic diet. Goal A1c to be below 7.0 (2) Hyperlipidemia LDL goal <100: Code(s): E78.5 - Hyperlipidemia, unspecified Plan: Most recent lipid panel showing appropriate total cholesterol and LDL. Has restarted taking her cholesterol medication and LDL now I goal below 100. . (3) Hypothyroidism: Code(s): E03.9 - Hypothyroidism, unspecified Qualifiers: Hypothyroidism type: unspecified Qualified Code(s): E03.9 - Hypothyroidism, unspecified Plan: Patient continues on levothyroxine 88 mcg. Has yet to recheck TSH. Will recheck TSH before her upcoming annual physical. (4) Atypical lobular hyperplasia of right breast: Code(s): N60.91 - Unspecified benign mammary dysplasia of right breast Plan: Has history of atypical hyperplasia of both breasts. She is due for screening mammogram thus I will place referral. (5) Tubular adenoma of colon: Code(s): D12.6 - Benign neoplasm of colon, unspecified Plan: Has history of colonoscopy in 2018 and polyp found that is tubular adenomatous, needs repeat colonoscopy (6) Breast cancer screening: Code(s): Z12.39 - Encounter for other screening for malignant neoplasm of breast Qualifiers: Breast cancer screening modality: mammogram Qualified Code(s): Z12.31 - Encounter for screening mammogram for malignant neoplasm of breast Plan: Will need screening mammogram Orders: Orders MM screening mammo BI Today Z12.31 - Encounter for screening mammogram for malignant neoplasm of breast MM diagnostic mammo unilat LT Today N60.91 - Unspecified benign mammary dysplasia of right breast AMB Hemoglobin A1c Today Z13.9 - Encounter for screening, unspecified Referrals Gastroenterology Referral D12.6 - Benign neoplasm of colon, unspecified Coding Level of Care Code Est Pt Level 4 (38514) Diagnoses Type 2 diabetes mellitus with diabetic polyneuropathy, without long-term current use of insulin E11.42 Diabetes mellitus assisted insulin use: without termite technician use Hyperlipidemia LDL goal <100 E78.5 Hypothyroidism, unspecified type E03.9 Hypothyroidism type: unspecified Atypical lobular hyperplasia of right breast N60.91 Tubular adenoma of colon D12.6 Encounter for screening mammogram for malignant neoplasm of breast Z12.31 Breast cancer screening modality: mammogram Additional Codes ADRIAN-7 Assessment Billing - ADRIAN-7 Assessment Tool: ADRIAN-7 Assessment [id number] ([id number])
== END 2023-07-06 08:32 | disposition home or self-care (01) ==
PROVIDERS: PCP Physician Assistant; Visit Provider Physician Assistant
DX: E11.42 Type 2 diabetes mellitus with diabetic polyneuropathy (principal); E78.5 Hyperlipidemia, unspecified; E03.9 Hypothyroidism, unspecified; Z86.010 Personal history of colon polyps
CPT/HCPCS: 83036; 99214

== ENCOUNTER 2023-10-26 13:16 | Outpatient (REF) | payer MEDICARE, SELFPAY ==
--- NOTE | ~2023-10-26 | US_ITS ---
EXAMINATION: MM DIAGNOSTIC DIGITAL BREAST TOMOSYNTHESIS, BILATERAL ULTRASOUND: BILATERAL CLINICAL INFORMATION: 68-year-old female complaining of a component of upper outer right breast pain, especially when sleeping. Does not have pain currently. Has had this pain evaluated in the past. Also here for bilateral screening. Patient has high risk with prior stereotactic biopsy 05/03/2022 yielding ALH right breast upper outer quadrant. Aborted stereotactic biopsy left breast 12/24/2019, for probably vascular calcifications. COMPARISON: Mammography: 05/19/2021, 08/14/2020, 12/24/2019, 05/30/2019, 04/25/2019, 04/01/2019 (BI-RADS 0) Ultrasound right breast 03/22/2022, 08/03/2020. TECHNIQUE: Digital breast tomosynthesis is performed in both the craniocaudal and mediolateral oblique views along with computer-aided detection (CAD). Synthesized 2D images are generated from the tomosynthesis. In addition to standard views, full-field 3-D right mediolateral view was also obtained. FINDINGS: The breasts are extremely dense, which lowers the sensitivity of mammography (ACR BI-RADS breast composition Category d). Parenchyma is again noted to be extremely dense and somewhat nodular, likely representing underlying fibrocystic changes. Postlumpectomy scarring noted in the right breast upper outer quadrant, unchanged. There are a few scattered benign type calcifications in both breasts. Subtle calcifications targeted for stereotactic biopsy 12/24/2019, are stable and likely vascular in nature. These are benign. There is an oval circumscribed mass in the 6:00 axis of the left breast, mid to anterior one third, which will be evaluated with ultrasound. There is no mammographic abnormality in the upper outer right breast to explain breast pain. No developing masses, developing regions of architectural distortion, or suspicious calcifications identified in either breast. The extremely dense somewhat nodular parenchymal pattern is unchanged from prior studies. ULTRASOUND: CLINICAL INFORMATION: Right breast upper outer quadrant pain. Left breast 6:00 axis oval circumscribed mass measuring 1.5 cm, likely likely a cyst. COMPARISON: As above. TECHNIQUE: Targeted sonographic bilateral breast evaluation was performed using a high frequency linear transducer. Attention was given to the upper outer quadrant of the right breast, in the 6:00 axis of the left breast anterior one third. Selected archived documentation. FINDINGS: RIGHT BREAST: -There is extremely dense fibroglandular tissue present. No suspicious masses, abnormal shadowing, or cystic abnormality identified. No parenchymal distortion seen. No correlate identified to breast pain. LEFT BREAST: -There is extremely dense fibroglandular tissue present. No suspicious masses, abnormal shadowing, or cystic abnormality identified. The abnormality on mammography at 6:00 appears to represent dense island of fibroglandular tissue. US/US breast BI limited mamm only IMPRESSION: -No findings suspicious for malignancy in either breast. -Extremely dense, nodular fibroglandular tissue is present bilaterally. This may limit the sensitivity of mammography. MRI may be of benefit as a screening adjunct in this high-risk patient. -No ultrasonographic or mammographic abnormality in the upper outer quadrant of the right breast to explain breast pain. Recommend clinical management. -Otherwise, recommend the patient resume annual screening mammography. OVERALL ASSESSMENT: Mammography: BI-RADS 2 - Benign Findings Ultrasound: BI-RADS 2 - Benign Findings RECOMMENDATION: 1. Patient should be managed based on the clinical impression. 2. Otherwise, routine annual screening mammography. This patient's information was entered into a reminder system with a target due date for their next mammogram. .
== END 2023-10-26 13:17 | disposition home or self-care (01) ==
LOC: HO.MAMMO 13:16
PROVIDERS: PCP Physician Assistant; Visit Provider Physician Assistant
DX: N64.4 Mastodynia (principal)
CPT/HCPCS: 76642; 77062; 77066

== ENCOUNTER → 2023-10-26 13:30 | Outpatient (BNV) | payer MEDICARE, SELFPAY | PROVIDERS: PCP Physician Assistant; Visit Provider Radiology Diagnostic Radiology | DX: R92.323 Mammographic fibroglandular density, bilateral breasts (principal); N60.02 Solitary cyst of left breast; N64.4 Mastodynia | CPT/HCPCS: 76642; 77066; G0279 ==

== ENCOUNTER 2023-10-31 10:27 | Outpatient (AMB) | payer MEDICARE, SELFPAY ==
--- NOTE | 2023-10-31 10:31 | MHC.OFFVIS ---
Vital Signs 10/31/23 10:43 Height 5 ft 3 in Weight 169 lb 5.04 oz BMI 30.0 BP 128/64 Blood Pressure Location Lt brachial Position Sitting Pulse 66 Pulse Source Pulse Oximeter Pulse Oximetry (%) 96 Oxygen Delivery Method Room Air Intake Visit Reasons: Colonoscopy Screening Intake Note: Chandni presents in office today for a scheduled routine colo and egd scrn. CC:Pt has previous hx of colo s/p per PCP notes. Pt reports her PCP has also reported that she is due for another procedure. [Colonoscopy: UTD with Colon cancer screening 2018 -- tubular adenoma repeat 5 years .] Day Haul Youth Supervisor Required: Yes Day Haul Youth Supervisor Name: April [id number] Allergies No Known Allergies [No Known Allergies*] Allergy (Verified 10/31/23 10:43) HPI HPI Colonoscopy Screening: Details: 68 year old? female here today for pre colonoscopy screening.? Patient was sent to us by her PCP.? Last colonoscopy in March of 2018 tubular adenoma found. Patient had upper endoscopy that showed possible Barretts.? Patient denies any gastrointestinal symptoms in the past or at present.? Patient reports that she has a script for omeprazole but only uses on as needed basis. Denies dyspepsia, dysphagia or odynophagia. Denies melena, hematochezia, unintentional weight loss or ribbon like stools. Denies any personal or family history of gastrointestinal disease, colon polyps, or CRC.? Denies history of difficulty with sedation or anesthesia in the past.? Negative for history of sleep apnea.? Denies any history of cardiac, renal, pulmonary, or hepatic disease.?? No history of infectious? diseases like hepatitis A, B, C, HIV or tuberculosis.? Patient is on low-dose aspirin PFSH Medical History Cystocele Obesity due to excess calories Carpal tunnel syndrome Arthritis Colon polyps Hypothyroidism Type 2 diabetes mellitus with diabetic polyneuropathy Hyperlipidemia LDL goal <100 Surgical History H/O colonoscopy (~2017) History of endoscopy (~2018) History of total abdominal hysterectomy History of total vaginal hysterectomy (TVH) Hx of breast biopsy History of section History of hysterectomy Family History Father Esophageal cancer Mother No problems noted. Maternal Grandmother Cancer Paternal Grandfather Cancer Leukemia Maternal Aunt Cancer Paternal Uncle Cancer Social History Household Members: Spouse and Children Household Members Other:: son, Housing: House Alcohol intake: never Patient Tobacco Use Status: Never used Tobacco Tobacco use type: Cigarette e-Cigarette/Vaping Use: Never Used Second Hand Smoke Exposure: No service: No Current occupational status: unemployed and disabled Cognitive needs: No Hearing needs: No Vision needs: Yes Female Reproductive History Menstrual Age of Menarche: 13 Physical Exam Vital Signs: Last Vital Signs Pulse 66 10/31/23 10:43 BP 128/64 10/31/23 10:43 Pulse Ox 96 10/31/23 10:43 Oxygen Delivery Method Room Air 10/31/23 10:43 BMI result Body Mass Index 30.0 Const General: healthy appearing and no acute distress Nutritional Appearance: obese Orientation/consciousness: patient oriented x3 Resp Effort & Inspection: normal respiratory effort, able to speak in complete sentences, no tracheal deviation and symmetric chest movement Auscultation: clear to auscultation bilaterally Cardio Rate: regular rate GI Inspection: Yes normal to inspection, No distended and Yes obesity Palpation (GI): Soft to palpation, not firm, nontender and No hepatosplenomegaly present Auscultation: normal bowel sounds General: Yes no CVA tenderness Back/Spine/Pelvis Back: no CVA tenderness Skin General skin exam: elasticity normal, turgor normal and dry skin Neuro General: patient oriented x3 Psych Appearance: grossly normal Mental Status: mental status grossly normal Assessment & Plan Assessment & Plan (1) Tubular adenoma of colon: Code(s): D12.6 - Benign neoplasm of colon, unspecified Category: Medical (2) Screen for colon cancer: Code(s): Z12.11 - Encounter for screening for malignant neoplasm of colon Plan Patient denies any GI, cardiac or respiratory symptoms.? Denies any issues with anesthesia in the past.? Denies any history of sleep apnea.? No history infectious diseases in the past or present.? On low-dose up sprain.? No familyl history of colon cancer. Tubular adenoma in 2018. Patient denies melena, hematochezia, unintentional weight loss or ribbon like stools.? Discussed at length the pre-procedure,? prep, diet & medications as well as what to expect prior, during and after the procedure.?? Stressed the importance of good bowel prep.? Recommended the use of Vaseline or Calmoseptine OTC & baby wipes with bowel movements to promote comfort.? ?Patient verbalizes understanding and agrees to plan of care.? She was given the opportunity to ask questions and all questions answered.? We will see her after the procedure.? Coding Level of Care Code New Pt Level 3 (79079) Diagnoses Tubular adenoma of colon D12.6 Screen for colon cancer Z12.11 Time Spent (min) 40 Comment 30 minutes spent with patient and additional 10 minutes spent reviewing her records
[2023-10-31 10:43] VITALS: BP 128/64; PULSE 66; O2SAT 96
== END 2023-10-31 11:28 | disposition home or self-care (01) ==
PROVIDERS: PCP Physician Assistant; Visit Provider Nurse Practitioner Family
DX: D12.6 Benign neoplasm of colon, unspecified (principal); Z12.11 Encounter for screening for malignant neoplasm of colon
CPT/HCPCS: 99203

== ENCOUNTER → 2023-10-31 10:27 | Outpatient (BNVA) | payer MEDICARE, SELFPAY | PROVIDERS: PCP Physician Assistant; Visit Provider Nurse Practitioner Family | DX: Z12.11 Encounter for screening for malignant neoplasm of colon (principal); D12.6 Benign neoplasm of colon, unspecified | CPT/HCPCS: 99202 ==

== ENCOUNTER 2024-02-12 11:15 | Outpatient (REF) | payer MEDICARE, SELFPAY ==
[2024-02-12 11:43] LABS: Hematocrit 39.9 % (37.0-47.0); Hemoglobin 13.3 g/dl (12.0-16.0); Mean Corpuscular HGB Conc 33.3 g/dl (31.0-35.0); Mean Corpuscular Hemoglobin 30.5 pg (27.0-33.0); Mean Corpuscular Volume 91.5 fL (80.0-98.0); Platelet Count 258 X10*3/uL (160-400); Red Blood Count 4.36 X10*6/uL (4.20-5.50); Red Cell Distribution Width 12.6 % (11.0-16.0); White Blood Count 5.8 X10*3/uL (4.8-10.8)
[2024-02-12 12:20] LABS: Alanine Aminotransferase 12 U/L (0-31); Albumin Level 4.3 g/dL (3.5-5.0); Alkaline Phosphatase 121 U/L (39-117); Anion Gap 12 (12-20); Aspartate Amino Transferase 17 U/L (5-31); Bilirubin Total 0.3 mg/dL (0.0-1.0); Blood Urea Nitrogen 10 mg/dL (9-16); Calcium 9.8 mg/dL (8.4-10.2); Carbon Dioxide 27 mmol/L (22-29); Chloride 103 mmol/L (96-108); Cholesterol 257 mg/dL (<200); Estimated Glomerular Filt Rate > 60; Glucose Fasting 151 mg/dL (60-99); HDL Cholesterol 34 mg/dL (>40); Potassium 4.1 mmol/L (3.3-5.1); Sodium 138 mmol/L (135-145); Total Protein 7.8 g/dL (6.5-8.0); Triglycerides 429 mg/dL (<150)
[2024-02-12 12:26] LABS: TSH reflex Free T4 4.69 uIU/mL (0.32-4.0); Vitamin D 25-OH Total 19.6 ng/mL (>30)
[2024-02-12 12:37] LABS: Creatinine Urine 110.66 mg/dL
[2024-02-12 13:26] LABS: Free T4 (Free Thyroxine) 0.94 ng/dL (0.71-1.85)
== END 2024-02-12 11:16 | disposition home or self-care (01) ==
LOC: HO.LAB 11:15
PROVIDERS: PCP Physician Assistant; Visit Provider Physician Assistant
DX: E11.42 Type 2 diabetes mellitus with diabetic polyneuropathy (principal); E78.5 Hyperlipidemia, unspecified; E03.9 Hypothyroidism, unspecified; E55.9 Vitamin D deficiency, unspecified
CPT/HCPCS: 36415; 80053; 80061; 82043; 82306; 82570; 83036; 84439; 84443; 85027; 96127; 99397

== ENCOUNTER 2024-02-12 14:12 | Outpatient (AMB) | payer MEDICARE, SELFPAY ==
[2024-02-12 14:19] VITALS: BP 118/60; BMI 30.5
--- NOTE | 2024-02-12 14:19 | MHC.PC.OV ---
Vital Signs 02/12/24 14:19 Height 5 ft 3 in Weight 172 lb 2 oz BMI 30.5 BP 118/60 Blood Pressure Location Lt brachial Position Sitting Pulse Source Pulse Oximeter Oxygen Delivery Method Room Air Intake Visit Reasons: Annual Exam Intake Note: Patient is here today for a physical. Emergency Manager Required: No Accompanied by: Self / Same As Patient Allergies No Known Allergies [No Known Allergies*] Allergy (Verified 02/12/24 14:39) Medication List - Last Reconciled 02/12/24 by Terrance Sarabia PA-C acetaminophen ER 650 mg PO Q12H 30 days aspirin 81 mg PO DAILY atorvastatin 80 mg PO BEDTIME 90 days cholecalciferol (vitamin D3) 50 mcg PO DAILY 90 days levothyroxine 88 mcg PO DAILY metformin ER 750 mg PO DAILY 90 days omeprazole 20 mg PO DAILY Tobacco use date assessed: 07/06/23 Fall risk assessment: No Falls in past year Last assessed Fall Risk: 02/12/24 Dental Screening Dental Screen Date: 07/06/23 HPI Annual Exam HPI Details Patient is a 68 female here today for a routine annual physical.? Patient has a past medical history significant for type 2 diabetes, hyperlipidemia, obesity, abnormal mammogram findings, hypothyroidism. Concerns--> Hypothyroid: Patient's most recent TSH improved though still slightly elevated. PLAN: Will increase her levothyroxine to 100 mcg for better control over hypothyroidism . CHRONIC MEDICAL CONDITIONS--> DMII:? Most recent fasting blood sugar showing elevation. Today's A1c improved to 6.9. Has gained a small amount of weight since last office visit. Does admit to dietary indiscretion. .. .. Osteoarthritis:? She does use Tylenol arthritis with decent affect on reducing her pain.? .. Hyperlipidemia: Patient's most recent fasting lipid panel showing elevated triglycerides and total cholesterol. She admits to being consistent with the use of her atorvastatin. Mammogram: Mammogram done in September 2023 BI-RADS 2- breast ultrasound done as well FUND DIRECTOR: Did have Pap screening in 2020 which was negative, needs repeat Colon cancer screening: done in 2018- tubular adenoma, has upcoming repeat colonoscopy in 05/20/2024 Vaccines: Declines COVID, pneumonia and flu vaccine Laboratory Tests 02/07/23 07/06/23 02/12/24 10:35 08:19 11:27 Creatinine Fasting Glucose 116 H Hgb A1c (Clinic) 7.1 H Hemoglobin A1c % 6.2 H Triglycerides Cholesterol 25-OH Vitamin D To mikaela TSH Urine Microalbumin 10.0 02/12/24 11:30 Creatinine 0.77 Fasting Glucose 151 H Hgb A1c (Clinic) Hemoglobin A1c % Triglycerides 429 H Cholesterol 257 H 25-OH Vitamin D To mikaela 19.6 L TSH 4.69 H Urine Microalbumin PFSH Medical History Cystocele Obesity due to excess calories Carpal tunnel syndrome Arthritis Colon polyps Hypothyroidism Type 2 diabetes mellitus with diabetic polyneuropathy Hyperlipidemia LDL goal <100 Surgical History H/O colonoscopy (~2017) History of endoscopy (~2017) History of total abdominal hysterectomy History of total vaginal hysterectomy (TVH) Hx of breast biopsy History of section History of hysterectomy Family History Father Esophageal cancer Mother No problems noted. Maternal Grandmother Cancer Paternal Grandfather Cancer Leukemia Maternal Aunt Cancer Paternal Uncle Cancer Social History Household Members: Spouse and Children Household Members Other:: son, Housing: House Alcohol intake: never Patient Tobacco Use Status: Never used Tobacco Tobacco use type: Cigarette e-Cigarette/Vaping Use: Never Used Second Hand Smoke Exposure: No service: No Current occupational status: unemployed and disabled Cognitive needs: No Hearing needs: No Vision needs: Yes Female Reproductive History Menstrual Age of Menarche: 13 Questionnaire PHQ-9 Over the last 2 weeks, how often have you been bothered by any of the following problems? 1. Little interest or pleasure in doing things: several days 2. Feeling down, depressed, or hopeless: several days 3. Trouble falling or staying asleep, or sleeping too much: not at all 4. Feeling tired or having little energy: more than half the days 5. Poor appetite or overeating: several days 6. Feeling bad about yourself - or that you are a failure or have let yourself or your family down: not at all 7. Trouble concentrating on things, such as reading the newspaper or watching television: several days 8. Moving or speaking so slowly that other people could have noticed. Or the opposite - being so fidgety or restless that you have been moving around a lot more than usual: several days 9. Thoughts that you would be better off or of hurting yourself in some way: not at all Total score: 7 Depression Screening Interpretation: Positive Depression Screening Follow-up: Existing condition Depression Screening Done: Yes 36232 - PHQ-9 Billing: Yes Source: Developed by Drs. Mark Gonzalez, Carole Bang, Job Verduzco and colleagues, with an educational clare from [employer]. Thrive Questionnaire Date Thrive assessed: 02/12/24 I am a: Patient What is your living situation today?: I have a steady place to live Within the past 12 months, did the food you bought not last and you didn't have the money to get more?: I choose not to answer this question Within the past 12 months, did you worry whether your food would run out before you got money to buy more?: I choose not to answer this question Do you have trouble paying for medicines?: No Do you have trouble getting transportation to medical appointments?: No Do you have trouble paying your heating and electricity bill?: No Do you have trouble taking care of your child, family member or friend?: No Do you have trouble with day-to-day activities such as bathing, preparing meals, shopping, managing finances, etc.?: I choose not to answer this question Are you currently unemployed and looking for a job?: No Are you interested in more education?: No Please select the resources that you would like help with: None Currently or been in a relationship where the following occur: I choose not to answer THRIVE Score: 0 AUDIT C Alcohol Use Questionnaire (AUDIT-C) 1. How often do you have a drink containing alcohol?: Never 3. How often do you have six or more drinks on one occasion?: Never Total Score: 0 ADRIAN-7 AMB Questionnaire ADRIAN-7 Date ADRIAN - 7 assessed: 02/12/24 Feeling nervous, anxious, or on edge: 0 = Not at all Not being able to stop or control worryin = Not at all Worrying too much about different things: 0 = Not at all Trouble relaxin = Not at all Being so restless that it is hard to sit still: 0 = Not at all Becoming easily annoyed or irritable: 0 = Not at all Feeling afraid as if something awful might happen: 0 = Not at all Total ADRIAN-7 score (0-4 normal; 5-9 mild; 10-14 moderate; 15-21 severe): 0 Source: Developed by Drs. Mark Gonzalez, Carole Bang, Job Verduzco and colleagues, with an educational clare from [employer]. ADRIAN-7 Assessment Billing ADRIAN-7 Assessment Tool: ADRIAN-7 Assessment 27468 Review of Systems Const Denies body aches, Denies chills, Denies excessive sweating, Denies fatigue, Denies fever(s) and Denies headache(s) Eyes Denies blurry vision ENT Denies dysphagia, Denies vertigo, Denies dizziness, Denies headache(s), Denies hearing loss and Denies tinnitus Card Denies chest pain, Denies chest pain with activity, Denies syncope, Denies irregular heart rhythm and Denies dyspnea Resp Denies chest congestion, Denies cough, Denies hemoptysis, Denies dyspnea and Denies wheezing GI Denies abdominal pain, Denies melena, Denies hematochezia, Denies coffee ground emesis, Denies dysphagia, Denies diarrhea, Denies nausea and Denies vomiting Denies urinary frequency, Denies dysuria, Denies urinary hesitancy and Denies urinary urgency Musc Denies arthralgias, Denies limited range of motion, Denies muscle cramps and Denies muscle weakness Skin/Breast Denies rash and Denies skin ulcer Neuro Denies Abnormal speech present, Denies confusion, Denies vertigo, Denies dizziness, Denies syncope, Denies headache(s), Denies memory loss and Denies seizure-like activity Psych Denies anxiety, Denies confusion, Denies depression, Denies memory loss, Denies panic attacks and Denies paranoia Endo Denies excessive sweating, Denies fatigue, Denies flushing, Denies polydipsia and Denies polyuria Aller/Immun Denies wheezing Physical exam (Primary Care) Vital Signs: Last Vital Signs BP 118/60 02/12/24 14:19 Oxygen Delivery Method Room Air 02/12/24 14:19 BMI result Body Mass Index 30.5 Tobacco/Smoking Status: Tobacco use Status Tobacco use date assessed 07/06/23 02/12/24 14:22 Patient Tobacco Use Status Never used Tobacco 02/12/24 14:22 Tobacco use type Cigarette 02/12/24 14:22 e-Cigarette/Vaping Use Never Used 02/12/24 14:22 PHQ-9: PHQ-9 Score PHQ-9: Total score 7 02/12/24 14:36 Depression Screening Interpretation: Positive Depression Screening Follow-up: Existing condition Thrive Assessment: Date of Thrive Assessment Date Thrive assessed 02/12/24 02/12/24 14:28 Currently or been in a relationship where the following occur: I choose not to answer Const General: cooperative, comfortable, no acute distress, alert and awake; No confusion Orientation/consciousness: oriented to person, oriented to place, patient oriented x3 and No confusion HENMT Head: Yes normocephalic Ears: external ears normal and TM's normal bilaterally Face and sinus: No sinus tenderness Mouth: Normal oral and palatal mucosa present and tongue normal Teeth and gingiva: dentition normal and gingiva normal Throat: Yes posterior oropharynx normal, Yes tonsils normal and Yes uvula midline Eyes Conjunctivae: conjunctivae normal Sclerae: sclerae normal Pupils: Equal, round and reactive pupils present EOM: EOMs intact bilaterally Direct Ophthalmoscopy: No no photophobia Neck Neck: Yes no lymphadenopathy, No tender and Yes no JVD Thyroid: Thyroid normal Carotids: no bruits Chest Chest palpation & inspection: no tenderness Resp Effort & Inspection: normal respiratory effort, no audible wheezes, not labored and no stridor Auscultation: no crackles, no rales, no rhonchi and no wheezes Cardio Jugular venous distension: no JVD Rate: regular rate, not bradycardic and not tachycardic Rhythm: regular rhythm Bruits: no carotid bruits Peripheral pulses: Peripheral pulses 2+ throughout GI Inspection: Yes normal to inspection, No abdominal wall ecchymosis and No visible herniation Palpation (GI): Soft to palpation, nontender, no guarding, not rigid and No hepatosplenomegaly present Auscultation: normoactive bowel sounds General: Yes no CVA tenderness Back/Spine/Pelvis Back: no CVA tenderness and No back tenderness Cervical Spine: cervical ROM normal Thoracic/Lumbar Spine: thoracic and lumbar spine normal to inspection, straight leg raise negative bilaterally, No thoraco-lumbar ROM limited and No lumbar spinal tenderness Skin Lesions: no lesions Rashes: no rashes Wounds: no wounds Neuro General: oriented to person, oriented to place, patient oriented x3, CN's II-XI intact bilaterally and No confusion Cranial nerves: Yes Equal, round and reactive pupils present and Yes Normal accommodation reflex present Cognition (Neuro): normal cognition Speech: No Abnormal speech present Gait exam (Neuro): Normal gait present Motor exam (neuro): 5/5 motor strength present throughout Extrem Right upper extremity: full ROM; no cyanosis Left upper extremity: full ROM; no cyanosis Right lower extremity: no edema Left lower extremity: no edema Psych Appearance: grossly normal Mental Status: mental status grossly normal Affect: normal affect Attitude: cooperative Thought process: Normal thought process present Results AMB Hemoglobin A1c AMB Hemoglobin A1c 6.9 % Last Edit by JOANNA Wick on 02/12/24 14:36 Results Reviewed Results Reviewed: Laboratory Last Values Hgb A1c (Clinic) 6.9 % (4.0-6.0) H 02/12/24 14:15 Coding Level of Care Code Est Pt Prev Care >65y(40095) Diagnoses Annual physical exam Z00.00 Type 2 diabetes mellitus with diabetic polyneuropathy, without long-term current use of insulin E11.42 Diabetes mellitus termite exterminator insulin use: without termite exterminator use Hyperlipidemia LDL goal <100 E78.5 Hypothyroidism, unspecified type E03.9 Hypothyroidism type: unspecified Polyarthritis M13.0 Tubular adenoma of colon D12.6 Vitamin D deficiency E55.9 Post-menopausal Z78.0 Additional Codes ADRIAN-7 Assessment Billing - ADRIAN-7 Assessment Tool: ADRIAN-7 Assessment [id number] ([id number]) Assessment & Plan Assessment & Plan (1) Annual physical exam: Code(s): Z00.00 - Encounter for general adult medical examination without abnormal findings Category: Medical Plan: As per HPI (2) Type 2 diabetes mellitus with diabetic polyneuropathy: Code(s): E11.42 - Type 2 diabetes mellitus with diabetic polyneuropathy Category: Medical Qualifiers: Diabetes mellitus termite exterminator insulin use: without termite exterminator use Qualified Code(s): E11.42 - Type 2 diabetes mellitus with diabetic polyneuropathy Plan: Patient's most recent fasting blood sugar elevated A1c also elevated. Will continue her current dose of metformin 750 mg. A1c is to remain below 7.0 (3) Hyperlipidemia LDL goal <100: Code(s): E78.5 - Hyperlipidemia, unspecified Category: Medical Plan: Patient's most recent lipid panel showing very elevated total cholesterol and triglycerides. She admits to being consistent with her use of statin therapy. She will work dietary modifications to further reduce her cholesterol. Goal LDL is to be below 100 (4) Hypothyroidism: Code(s): E03.9 - Hypothyroidism, unspecified Category: Medical Qualifiers: Hypothyroidism type: unspecified Qualified Code(s): E03.9 - Hypothyroidism, unspecified Plan: Noted improved TSH and most recent labs though still remains slightly elevated. Will increase her levothyroxine to 100 mcg for better control over hypothyroidism. (5) Polyarthritis: Code(s): M13.0 - Polyarthritis, unspecified Category: Medical Plan: Patient continues to use acetaminophen 650 with good relief of her polyarthritis pain. (6) Tubular adenoma of colon: Code(s): D12.6 - Benign neoplasm of colon, unspecified Category: Medical Plan: Has upcoming colonoscopy in May of 2024. (7) Vitamin D deficiency: Code(s): E55.9 - Vitamin D deficiency, unspecified Category: Medical Plan: Most recent vitamin-D level slightly low at 19. She will continue vitamin-D supplementation. (8) Post-menopausal: Code(s): Z78.0 - Asymptomatic menopausal state Category: Medical Plan: Patient is a candidate for bone density screening Orders: Orders Comprehensive [place]. Panel Fast 6 Months E11.42 - Type 2 diabetes mellitus with diabetic polyneuropathy XR DEXA axial skeleton 02/12/24 Z78.0 - Asymptomatic menopausal state AMB Hemoglobin A1c 02/12/24 E11.42 - Type 2 diabetes mellitus with diabetic polyneuropathy Hemoglobin A1c 6 Months E11.42 - Type 2 diabetes mellitus with diabetic polyneuropathy Complete Blood Count no Diff 6 Months E11.42 - Type 2 diabetes mellitus with diabetic polyneuropathy Lipid Panel 6 Months E78.5 - Hyperlipidemia, unspecified TSH reflex Free T4 6 Months E03.9 - Hypothyroidism, unspecified Medications: New levothyroxine 100 mcg PO DAILY 90 tabs 1RF 90 days E03.9 - Hypothyroidism, unspecified Changed From acetaminophen ER ([facility] Arthritis Pain) 650 mg PO Q12H 30 days 60 tabs 6RF M19.049 - Primary osteoarthritis, unspecified hand To acetaminophen ER 650 mg PO Q12H 60 tabs 6RF 30 days M19.049 - Primary osteoarthritis, unspecified hand Refilled atorvastatin 80 mg PO BEDTIME 90 tabs 2RF 90 days E11.42 - Type 2 diabetes mellitus with diabetic polyneuropathy cholecalciferol (vitamin D3) 50 mcg PO DAILY 90 caps 1RF 90 days E55.9 - Vitamin D deficiency, unspecified omeprazole 20 mg PO DAILY 90 caps 1RF Discontinued levothyroxine Discontinued Reason: Doctor's Order 88 mcg PO DAILY 90 tabs 1RF E03.9 - Hypothyroidism, unspecified Patient Instructions: Goal: A1c to be below 7.0, LDL to be below 100 Barriers: Adherence to physical activity and healthy eating habits
== END 2024-02-12 15:15 | disposition home or self-care (01) ==
PROVIDERS: PCP Physician Assistant; Visit Provider Physician Assistant
DX: Z00.00 Encounter for general adult medical examination without abnormal findings (principal); E11.42 Type 2 diabetes mellitus with diabetic polyneuropathy; E78.5 Hyperlipidemia, unspecified; E03.9 Hypothyroidism, unspecified; M13.0 Polyarthritis, unspecified; D12.6 Benign neoplasm of colon, unspecified; E55.9 Vitamin D deficiency, unspecified; Z78.0 Asymptomatic menopausal state

== ENCOUNTER 2024-05-20 07:29 | Day surgery (SDC) | payer MEDICARE, SELFPAY ==
[2024-05-20 07:51] VITALS: BMI 30.8
[2024-05-20 07:57] VITALS: BP 142/67; PULSE 80; RESP 15; TEMP 36.3; O2SAT 99
[2024-05-20] MEDS: Lactated Ringers 1,000 ML 50 ML IVCONT (08:17)
--- NOTE | 2024-05-20 08:21 | HO.ANESPROP2 ---
HPI - Anesthesia Eval Consult details Narrative: for colonoscopy [facility] Active Problems Active Problems: All Active Problems Post-menopausal (Acute) Mastodynia (Acute) Breast cancer screening (Acute) Nocturia (Acute) Tinea pedis (Acute) Tubular adenoma of colon (Acute) Right hip pain (Acute) Obese (Acute) Breast pain, right (Acute) Vitamin D deficiency (Acute) At risk for breast cancer (Acute) Well woman exam (Acute) Vulvar lesion (Acute) Vaginal lesion (Acute) Annual physical exam (Acute) Hand arthritis (Acute) Polyarthritis (Acute) Atypical lobular hyperplasia of right breast (Acute) Type 2 diabetes mellitus with diabetic polyneuropathy (Acute) Hyperlipidemia LDL goal <100 (Acute) Obesity due to excess calories (Acute) Hypothyroidism (Acute) Past Medical History Medical History Cystocele Obesity due to excess calories Carpal tunnel syndrome Arthritis Colon polyps Hypothyroidism Type 2 diabetes mellitus with diabetic polyneuropathy Hyperlipidemia LDL goal <100 Family History Family History Father Esophageal cancer Mother No problems noted. Maternal Grandmother Cancer Paternal Grandfather Cancer Leukemia Maternal Aunt Cancer Paternal Uncle Cancer Family history of problems with anesthesia: No Surgical History Surgical History H/O colonoscopy (~2018) History of endoscopy (~2018) History of total abdominal hysterectomy History of total vaginal hysterectomy (TVH) Hx of breast biopsy History of section History of hysterectomy History of Problems with Anesthesia: No Social History Social History Household Members: Spouse and Children Household Members Other:: son, Housing: House Alcohol intake: never Patient Tobacco Use Status: Former Tobacco user Tobacco use type: Cigarette e-Cigarette/Vaping Use: Never Used Second Hand Smoke Exposure: No Use of substances other than those prescribed or required for medical reasons: No Are you DNR?: No Advance Directives: No Advance Directives Information Provided: Yes service: No Current occupational status: unemployed and disabled Cognitive needs: No Hearing needs: No Vision needs: Yes Meds Allergies Allergy/AdvReac Type Severity Reaction Status Date / Time No Known Allergies Allergy Verified 05/20/24 07:50 [No Known Allergies*] Active Medications: Current Medications Lactated Ringer's (Lr) 1,000 mls @ 50 mls/hr IVCONT .Q20H OMAR Last Admin: 05/20/24 08:17 Dose: 50 mls/hr Exam Height,Weight and Vital Signs: Height 5 ft 3 in Weight 78.925 kg Last Vital Signs Temp 97.3 F 05/20/24 07:57 Pulse 80 05/20/24 07:57 Resp 15 05/20/24 07:57 BP 142/67 H 05/20/24 07:57 Pulse Ox 99 05/20/24 07:57 O2 Del Method Room Air 05/20/24 07:57 Airway Mallampati Class: II TM Dist: >3cm Neck ROM: Full Partial: Upper Heart: rrr Lungs: cta Assessment and Plan Assessment Anesthesia Assessment: Anesthesia Plan Discussed Final Anesthetic Review Family History of Problems with Anesthesia: No History of Problems with Anesthesia: No NPO: Yes ASA Class: II Final Preanesthetic Review: No Changes in Pt Med Stat, Meds/Allgs Chart Reviewed, Consent Obtained/Reviewed and Anes Risks/Benef Reviewed Patient Risk: Low Procedure Risk: Low Anesthetic Plan Anesthetic Plan: MAC: Disposition: Standard PACU
--- NOTE | 2024-05-20 08:22 | P.HPSUR_ITS ---
Pre-Procedural Eval Section A - 24 Hr Update-Section A only Date of Service: 05/20/24 Section B - Complete if H&P > 30 days Chief Complaint: Surveillance for colon polyps, FU of Landrum's Relevant Family History (Specify if Yes): Yes Relevant Social History: None Present Medications: see Short Stay Collaborative assessment Medical History: Significant History (Cystocele Obesity due to excess calories C arpal tunnel syndrome Arthritis Colon polyps Hypothyroidism Type 2 diabetes mellitus with diabetic polyneuropathy Hyperlipidemia LDL goal <100) History of Previous Operations: Relevant previous surgery/procedure and date(s) (H/O colonoscopy (~2017) History of endoscopy (~2017) History of total abdominal hysterectomy History of total vaginal hysterectomy (TVH) Hx of breast biopsy History of section History of hysterectomy) Allergies: Allergies Allergy/AdvReac Type Severity Reaction Status Date / Time No Known Allergies Allergy Verified 05/20/24 07:50 [No Known Allergies*] Review of Systems Sugical H&P ROS: Negative: Constitution, Cardiovascular, Respiratory and Gastrointestinal Exam Surgical H&P Exam: Normal: Heart, Normal: Lungs, Normal: Extremities and Normal: Abdomen Plan Diagnosis/Plan: Change (Proceed with EGD (FU of Landrum's) and Colon (FU of colon polyps)) I have reviewed the history and physical and performed a pertinent physical examination on my patient. No changes have occurred unless specified. Time Spent With Patient Time: Total time managing care of this patient today ____ minutes.
[2024-05-20 08:24] LABS: Glucose, Whole Blood 133 mg/dL (60-115)
--- NOTE | 2024-05-20 09:09 | HO.OPN-COLON ---
Colonoscopy Operative Note Operative Note Date of Service: 05/20/24 Narrative: FLEXIBLE TRANSORAL UPPER GASTROINTESTINAL ENDOSCOPY WITH BIOPSIES AND FORD AND COLONOSCOPY TILL CECUM WITH BIOPSIES AND SNARE POLYPECTOMY Pre-op diagnosis: Surveillance of colon polyps, follow-up Landrum's Post-op diagnosis: GERD, Landrum's esophagus, hiatal hernia, Gastritis, Colon Polyps, Diverticulosis, hemorrhoids Endoscopist:? Kevin Duque MD Anesthesia:?MAC UPPER ENDOSCOPY Consent: Indications for the procedure and potential complications of bleeding, perforation, reaction to medications and missed diagnosis were discussed with the patient and informed consent was obtained. Instrument: Olympus GIF H 190 mid size upper endoscope Monitoring: Vital signs and clinical assessment, continuous EKG monitoring, Pulse oximetry, Carbon Dioxide monitoring and blood pressure monitoring were done throughout the procedure. Procedure: The patient was placed in the left lateral decubitis position and pre-procedure medications were administered and a bite block was placed. The endoscope was inserted into the mouth and advanced under direct vision to the third part of duodenum. A careful inspection was made as the upper endoscope was withdrawn including a retroflexed examination of the proximal stomach; Findings and interventions are described below. Findings: Larynx: Normal Esophagus: GE junction at 32 cms, hiatal hernia 32 to 35 cms. A 1 cms tongue of suspected Barretts at GE junction - biopsies were obtained Stomach: Moderate diffuse gastric erythema - biopsies were obtained from the antrum. Grade 2 flap valve on retroflexed examination of the cardia. Duodenum: Normal bulb and descending duodenum Intervention: Biopsies as noted above COLONOSCOPY PROCEDURE NOTE Instrument: Olympus PCF H 190 L variable stiffness pediatric colonoscope Monitoring: Vital signs and clinical assessment, intermittent blood pressure monitoring, continuous EKG monitoring, Pulse oximetry and Carbon Dioxide monitoring were done throughout the procedure. Please see anesthesia flowsheet. Colon withdrawl time was 12 minutes. Procedure: The patient was placed in the left lateral decubitis position and pre-procedure medications were administered. After a digital rectal examination of the ano-rectum, the video colonoscope was inserted into the rectum and advanced through the colon to the cecum. The colonoscope was slowly withdrawn in a retrograde panoramic fashion and the colon mucosa was carefully examined including a retroflexed view of the rectum. Findings and interventions are described below. Procedure Difficulty: without difficulty Findings: Terminal Ileum: Not evaluated Cecum: Normal Ascending Colon: Normal Transverse Colon: Normal Descending Colon: Normal Sigmoid Colon: A 4-5 mm sessile polyp - removed with a cold snare. Moderate diverticulosis Rectum: Normal Ano-rectum: Small internal hemorrhoids Colon preparation: Excellent, after some irrigation. [place] Bowel Preparation Scale Right colon; 3 Transverse colon: 3 Left colon; 3 (0 = Unprepared colon segment with mucosa not seen due to solid stool that cannot be cleared. 1 = Portion of mucosa of the colon segment seen, but other areas of the colon segment not well seen due to staining, residual stool and/or opaque liquid. 2 = Minor amount of residual staining, small fragments of stool and/or opaque liquid, but mucosa of colon segment seen well. 3 = Entire mucosa of colon segment seen well with no residual staining, small fragments of stool or opaque liquid) Impression and Post Procedure Diagnosis: Endoscopy Findings: ESOPHAGUS: hiatal hernia 32 to 35 cms. A 1 cms tongue of suspected Barretts at GE junction - biopsies were obtained STOMACH: Diffuse gastritis DUODENUM: Normal Colonoscopy Findings: One small polyp was removed Moderate diverticulosis seen in the sigmoid colon Small hemorrhoids on retroflexed exam. Plan: Pt has a FU appointment on 06/03/24 with Tiffanie Mandel NP Repeat Colonoscopy in 5 years if polyps are adenomatous and due to history of adenomatous colon polyps Above findings were reviewed with the patient and relevant handouts were given and the discharge area. BIOPSIES SHOWED: A. Stomach, antrum, biopsy: Antral-type mucosa with mild chronic inactive inflammation; no Helicobacter organisms seen. B. GE junction, biopsy: - Cardiofundic-type mucosa with mild chronic inactive inflammation; no intestinal metaplasia seen. - Squamous mucosa within normal limits. C. Colon, sigmoid, polypectomy: No tissue present. Letter sent advising repeat colonoscopy in 5 years Patient placed on the colonoscopy recall list.
[2024-05-20 09:40] VITALS: BP 87/49; PULSE 73; RESP 16; TEMP 36.3; O2SAT 90
[2024-05-20 09:55] VITALS: BP 107/65; PULSE 71; RESP 12; O2SAT 95
[2024-05-20 10:12] VITALS: BP 123/60; PULSE 66; RESP 12; TEMP 36.3; O2SAT 98
== END 2024-05-20 10:56 | disposition home or self-care (01) ==
PROVIDERS: PCP Physician Assistant; Visit Provider Internal Medicine Gastroenterology
PROC: (CPT 45385; principal; 2024-05-20 08:30)
DX: Z12.11 Encounter for screening for malignant neoplasm of colon (principal); K63.5 Polyp of colon; K57.30 Diverticulosis of large intestine without perforation or abscess without bleeding; K64.8 Other hemorrhoids; Z86.0101 Personal history of adenomatous and serrated colon polyps; K22.70 Barrett's esophagus without dysplasia; K29.70 Gastritis, unspecified, without bleeding; K44.9 Diaphragmatic hernia without obstruction or gangrene; K21.9 Gastro-esophageal reflux disease without esophagitis; E11.9 Type 2 diabetes mellitus without complications; E78.5 Hyperlipidemia, unspecified; E03.9 Hypothyroidism, unspecified; E55.9 Vitamin D deficiency, unspecified; Z79.84 Long term (current) use of oral hypoglycemic drugs; Z79.02 Long term (current) use of antithrombotics/antiplatelets; Z79.899 Other long term (current) drug therapy
CPT/HCPCS: 45385; 43239; 82947; 88305; 88313; 88342; J2003; J2704

== ENCOUNTER → 2024-05-20 07:29 | Outpatient (BNV) | payer MEDICARE, SELFPAY | PROVIDERS: PCP Physician Assistant; Visit Provider Internal Medicine Gastroenterology | DX: Z12.11 Encounter for screening for malignant neoplasm of colon (principal); K63.5 Polyp of colon; K57.30 Diverticulosis of large intestine without perforation or abscess without bleeding; K64.8 Other hemorrhoids; K22.70 Barrett's esophagus without dysplasia; K21.9 Gastro-esophageal reflux disease without esophagitis; K29.70 Gastritis, unspecified, without bleeding | CPT/HCPCS: 43239; 45385 ==

== ENCOUNTER 2024-08-09 11:54 | Outpatient (REF) | payer MEDICARE, SELFPAY ==
[2024-08-09 13:24] LABS: Hematocrit 39.2 % (37.0-47.0); Hemoglobin 13.2 g/dl (12.0-16.0); Mean Corpuscular HGB Conc 33.7 g/dl (31.0-35.0); Mean Corpuscular Hemoglobin 30.3 pg (27.0-33.0); Mean Corpuscular Volume 90.1 fL (80.0-98.0); Mean Platelet Volume 9.6 fL (9.4-12.3); Platelet Count 270 X10*3/uL (160-400); Red Blood Count 4.35 X10*6/uL (4.20-5.50); Red Cell Distribution Width 12.1 % (11.0-16.0); White Blood Count 7.4 X10*3/uL (4.8-10.8)
[2024-08-09 13:43] LABS: Estimated Average Glucose 160 mg/dL; Hemoglobin A1C 196.1959 umol/L; Hemoglobin A1c % 7.2 % (<6.0); Total Hemoglobin (HGBA1C) 3558.4757 umol/L
[2024-08-09 14:11] LABS: Alanine Aminotransferase 13 U/L (0-31); Albumin Level 4.3 g/dL (3.5-5.0); Alkaline Phosphatase 121 U/L (39-117); Anion Gap 9 (12-20); Aspartate Amino Transferase 21 U/L (5-31); Bilirubin Total 0.5 mg/dL (0.0-1.0); Blood Urea Nitrogen 11 mg/dL (9-16); Calcium 9.3 mg/dL (8.4-10.2); Carbon Dioxide 27 mmol/L (22-29); Chloride 107 mmol/L (96-108); Cholesterol 254 mg/dL (<200); Estimated Glomerular Filt Rate > 60; Glucose Fasting 157 mg/dL (60-99); HDL Cholesterol 35 mg/dL (>40); LDL Cholesterol Calculated 169 mg/dL (<100); Potassium 4.2 mmol/L (3.3-5.1); Sodium 139 mmol/L (135-145); Total Protein 7.6 g/dL (6.5-8.0); Triglycerides 251 mg/dL (<150)
[2024-08-09 14:12] LABS: TSH reflex Free T4 3.15 uIU/mL (0.32-4.0)
== END 2024-08-09 11:55 | disposition home or self-care (01) ==
LOC: HO.LAB 11:54
PROVIDERS: PCP Physician Assistant; Visit Provider Physician Assistant
DX: E11.42 Type 2 diabetes mellitus with diabetic polyneuropathy (principal); E78.5 Hyperlipidemia, unspecified; E03.9 Hypothyroidism, unspecified
CPT/HCPCS: 36415; 80053; 80061; 83036; 84443; 85027

== ENCOUNTER 2024-08-12 13:57 | Outpatient (AMB) | payer MEDICARE, SELFPAY ==
--- NOTE | 2024-08-12 14:01 | A.OFFPC_ITS ---
Vital Signs 08/12/24 14:04 Weight 173 lb 4 oz BP 130/72 Blood Pressure Location Lt brachial Position Sitting Pulse 86 Pulse Source Pulse Oximeter Temp 97.7 F Temp Source Temporal Artery Scan Pulse Oximetry (%) 98 Oxygen Delivery Method Room Air Intake Visit Reasons: 6mth f/u Research Geologist Required: Yes Research Geologist Language: Geological Technician Name: Research Geologist ID number [id number] Accompanied by: Self / Same As Patient Allergies No Known Allergies [No Known Allergies*] Allergy (Verified 08/12/24 14:25) Medication List - Last Reconciled 08/12/24 by Terrance Sarabia PA-C acetaminophen ER 650 mg PO Q12H 30 days acetaminophen ER 650 mg PO Q12H 30 days atorvastatin 80 mg PO BEDTIME 90 days cholecalciferol (vitamin D3) 50 mcg PO DAILY 90 days cholecalciferol (vitamin D3) 50 mcg PO DAILY 90 days levothyroxine 100 mcg PO DAILY 90 days levothyroxine 100 mcg PO DAILY 90 days metformin ER 750 mg PO DAILY 90 days omeprazole 20 mg PO DAILY omeprazole 20 mg PO DAILY Tobacco use date assessed: 08/12/24 Fall risk assessment: No Falls in past year Last assessed Fall Risk: 08/12/24 Dental Screening Dental Screen Date: 08/12/24 Did you have a dental visit in the last 12 months?: Yes Did you have a dental problem in the last 6 months where you did not have access to dental care?: No Was dental information given to patient?: Patient has dentist HPI 6mth f/u HPI Details Patient is a 69 female here today for a followup Patient has a past medical history significant for type 2 diabetes, hyperlipidemia, obesity, abnormal mammogram findings, hypothyroidism. Hypothyroid: Patient's most recent TSH stable. She is adherent to the use of levothyroxine on a daily basis. DMII:? Most recent fasting blood sugar showing elevation. Most recent A1c slightly elevated at 7.2 from 6.9 Has gained a small amount of weight since last office visit. Does admit to dietary indiscretion. .. .. Osteoarthritis:? She does use Tylenol arthritis with decent affect on reducing her pain.? She has interested in starting an NSAID on an as needed basis for polyarthralgia .. Hyperlipidemia: Patient's most recent fasting lipid panel showing elevated triglycerides and total cholesterol. She admits to being consistent with the use of her atorvastatin for some unclear reason. She is willing to reduce her dose of atorvastatin to 40 mg and be more consistent with daily use of this medication. Laboratory Tests 02/07/23 02/12/24 08/09/24 10:35 14:15 12:06 Creatinine 0.62 Fasting Glucose 157 H Hgb A1c (Clinic) 6.9 H Hemoglobin A1c % 6.2 H 7.2 H Cholesterol 254 H LDL Cholesterol, C alc 169 H PFSH Medical History Cystocele Obesity due to excess calories Carpal tunnel syndrome Arthritis Colon polyps Hypothyroidism Type 2 diabetes mellitus with diabetic polyneuropathy Hyperlipidemia LDL goal <100 Surgical History H/O colonoscopy (~2017) History of endoscopy (~2017) History of total abdominal hysterectomy History of total vaginal hysterectomy (TVH) Hx of breast biopsy History of section History of hysterectomy Family History Father Esophageal cancer Mother No problems noted. Maternal Grandmother Cancer Paternal Grandfather Cancer Leukemia Maternal Aunt Cancer Paternal Uncle Cancer Social History Household Members: Spouse and Children Household Members Other:: son, Housing: House Alcohol intake: never Patient Tobacco Use Status: Former Tobacco user Tobacco use type: Cigarette e-Cigarette/Vaping Use: Never Used Second Hand Smoke Exposure: No service: No Current occupational status: unemployed and disabled Cognitive needs: No Hearing needs: No Vision needs: Yes Female Reproductive History Menstrual Age of Menarche: 13 Questionnaire PHQ-9 Over the last 2 weeks, how often have you been bothered by any of the following problems? 1. Little interest or pleasure in doing things: several days 2. Feeling down, depressed, or hopeless: several days 3. Trouble falling or staying asleep, or sleeping too much: not at all 4. Feeling tired or having little energy: more than half the days 5. Poor appetite or overeating: several days 6. Feeling bad about yourself - or that you are a failure or have let yourself or your family down: not at all 7. Trouble concentrating on things, such as reading the newspaper or watching television: several days 8. Moving or speaking so slowly that other people could have noticed. Or the opposite - being so fidgety or restless that you have been moving around a lot more than usual: several days 9. Thoughts that you would be better off or of hurting yourself in some way: not at all Total score: 7 Depression Screening Interpretation: Positive Depression Screening Follow-up: Existing condition Depression Screening Done: Yes 22014 - PHQ-9 Billing: Yes Source: Developed by Drs. Mark Gonzalez, Carole Bang, Job Verduzco and colleagues, with an educational clare from [employer]. Thrive Questionnaire Date Thrive assessed: 08/12/24 I am a: Patient What is your living situation today?: I have a steady place to live Within the past 12 months, did the food you bought not last and you didn't have the money to get more?: I choose not to answer this question Within the past 12 months, did you worry whether your food would run out before you got money to buy more?: I choose not to answer this question Do you have trouble paying for medicines?: No Do you have trouble getting transportation to medical appointments?: No Do you have trouble paying your heating and electricity bill?: No Do you have trouble taking care of your child, family member or friend?: No Do you have trouble with day-to-day activities such as bathing, preparing meals, shopping, managing finances, etc.?: I choose not to answer this question Are you currently unemployed and looking for a job?: No Are you interested in more education?: No Please select the resources that you would like help with: None Currently or been in a relationship where the following occur: I choose not to answer THRIVE Score: 0 AUDIT C Alcohol Use Questionnaire (AUDIT-C) 1. How often do you have a drink containing alcohol?: Never 3. How often do you have six or more drinks on one occasion?: Never Total Score: 0 ADRIAN-7 AMB Questionnaire ADRIAN-7 Date ADRIAN - 7 assessed: 08/12/24 Feeling nervous, anxious, or on edge: 0 = Not at all Not being able to stop or control worryin = Not at all Worrying too much about different things: 0 = Not at all Trouble relaxin = Not at all Being so restless that it is hard to sit still: 0 = Not at all Becoming easily annoyed or irritable: 0 = Not at all Feeling afraid as if something awful might happen: 0 = Not at all Total ADRIAN-7 score (0-4 normal; 5-9 mild; 10-14 moderate; 15-21 severe): 0 Source: Developed by Drs. Mark Gonzalez, Carole Bang, Job Verduzco and colleagues, with an educational clare from [employer]. ADRIAN-7 Assessment Billing ADRIAN-7 Assessment Tool: ADRIAN-7 Assessment 67168 Review of Systems Const Denies headache(s) Eyes Denies loss of vision ENT Denies vertigo, Denies dizziness, Denies headache(s) and Denies sore throat Card Denies chest pain, Denies leg edema and Denies lightheadedness Resp Denies cough, Denies hemoptysis and Denies wheezing GI Denies abdominal pain, Denies melena, Denies constipation, Denies diarrhea and Denies vomiting Denies urinary frequency, Denies dysuria and Denies urinary urgency Musc Denies arthralgias, Denies joint swelling, Denies numbness and Denies tingling Neuro Denies Abnormal speech present, Denies behavioral changes, Denies vertigo, Denies dizziness, Denies headache(s), Denies loss of vision, Denies memory loss, Denies numbness and Denies tingling Psych Denies anxiety, Denies behavioral changes, Denies depression, Denies memory loss and Denies panic attacks Perez/Lymph Denies easy bleeding and Denies easy bruising Aller/Immun Denies wheezing Physical exam (Primary Care) Vital Signs: Last Vital Signs Temp 97.7 F 08/12/24 14:04 Pulse 86 08/12/24 14:04 BP 130/72 08/12/24 14:04 Pulse Ox 98 08/12/24 14:04 Oxygen Delivery Method Room Air 08/12/24 14:04 Tobacco/Smoking Status: Tobacco use Status Tobacco use date assessed 08/12/24 08/12/24 14:16 Patient Tobacco Use Status Former Tobacco user 08/12/24 14:01 Tobacco use type Cigarette 08/12/24 14:01 e-Cigarette/Vaping Use Never Used 08/12/24 14:01 PHQ-9: PHQ-9 Score PHQ-9: Total score 7 08/12/24 14:16 Depression Screening Interpretation: Positive Depression Screening Follow-up: Existing condition Thrive Assessment: Date of Thrive Assessment Date Thrive assessed 08/12/24 08/12/24 14:08 Currently or been in a relationship where the following occur: I choose not to answer Const General: healthy appearing, no acute distress, alert and awake Nutritional Appearance: well nourished Orientation/consciousness: oriented to person, oriented to place and oriented to time HENMT Ears: TM's normal bilaterally General nose exam: Normal nasal mucous membranes and turbinates present Eyes Conjunctivae: conjunctivae normal Sclerae: sclerae normal Pupils: Equal, round and reactive pupils present Neck Neck: Yes no lymphadenopathy and Yes no JVD Thyroid: Thyroid normal Carotids: no bruits Resp Effort & Inspection: normal respiratory effort and not tachypneic Auscultation: no crackles, no rales, no rhonchi and no wheezes Cardio Rate: regular rate Rhythm: regular rhythm Heart sounds: no murmurs and normal S1 and S2 GI Palpation (GI): Soft to palpation, nontender, no hepatomegaly and no splenomegaly Auscultation: normal bowel sounds Skin General skin exam: no rashes or lesions noted and dry skin Neuro General: oriented to person, oriented to place and oriented to time Cranial nerves: Yes Equal, round and reactive pupils present Speech: No Abnormal speech present Gait exam (Neuro): Normal gait present Motor exam (neuro): no tremor noted Extrem Right upper extremity: full ROM Left upper extremity: full ROM Right lower extremity: full ROM; no edema Left lower extremity: full ROM; no edema Psych Mental Status: mental status grossly normal Speech and movement: Normal speech and movement present Affect: normal affect Attitude: cooperative Thought process: Normal thought process present Coding Level of Care Code Est Pt Level 4 (11262) Diagnoses Type 2 diabetes mellitus with diabetic polyneuropathy, without long-term current use of insulin E11.42 Diabetes mellitus detention insulin use: without detention use Hyperlipidemia LDL goal <100 E78.5 Hypothyroidism, unspecified type E03.9 Hypothyroidism type: unspecified Polyarthritis M13.0 Vitamin D deficiency E55.9 Additional Codes ADRIAN-7 Assessment Billing - ADRIAN-7 Assessment Tool: ADRIAN-7 Assessment [id number] ([id number]) PHQ-9 - 37523 - PHQ-9 Billing: Yes ([id number]) Assessment & Plan Assessment & Plan (1) Type 2 diabetes mellitus with diabetic polyneuropathy: Code(s): E11.42 - Type 2 diabetes mellitus with diabetic polyneuropathy Category: Medical Qualifiers: Diabetes mellitus director long term care insulin use: without director long term care use Qualified Code(s): E11.42 - Type 2 diabetes mellitus with diabetic polyneuropathy Plan: Patient's most recent fasting blood sugar elevated A1c also elevated. Her A1c did elevate at 7.2. She does admit to some dietary indiscretion over the winter. Will continue her current dose of metformin 750 mg. A1c is to remain below 7.0 (2) Hyperlipidemia LDL goal <100: Code(s): E78.5 - Hyperlipidemia, unspecified Category: Medical Plan: Patient's most recent lipid panel showing very elevated total cholesterol and triglycerides. She admits to being consistent with her use of statin therapy. Will decrease her current dose of atorvastatin to 40 mg and she promises to use the medication on a daily basis Goal LDL is to be below 100 (3) Hypothyroidism: Code(s): E03.9 - Hypothyroidism, unspecified Category: Medical Qualifiers: Hypothyroidism type: unspecified Qualified Code(s): E03.9 - Hypothyroidism, unspecified Plan: Most recent TSH stabilized with current dose of levothyroxine. Continues on levothyroxine 100 mcg daily (4) Polyarthritis: Code(s): M13.0 - Polyarthritis, unspecified Category: Medical Plan: Patient continues to use acetaminophen 650 with good relief of her polyarthritis pain. Will add on p.r.n. use of NSAID for her arthritic pain. We did discuss the possible side effects of NSAIDs including GERD and elevations in blood pressure. (5) Vitamin D deficiency: Code(s): E55.9 - Vitamin D deficiency, unspecified Category: Medical Plan: Most recent vitamin-D level slightly low at 19. She will continue vitamin-D supplementation. Orders: Orders Complete Blood Count no Diff Today E11.42 - Type 2 diabetes mellitus with diabetic polyneuropathy Hemoglobin A1c Today E11.42 - Type 2 diabetes mellitus with diabetic polyneuropathy TSH reflex Free T4 Today E03.9 - Hypothyroidism, unspecified Comprehensive [place]. Panel Fast Today E11.42 - Type 2 diabetes mellitus with diabetic polyneuropathy Lipid Panel Today E78.5 - Hyperlipidemia, unspecified Medications: New atorvastatin 40 mg PO DAILY 90 days 90 tabs 1RF E78.5 - Hyperlipidemia, unspecified ibuprofen 600 mg PO TID 30 days PRN 90 tabs 1RF pain M13.0 - Polyarthritis, unspecified Refilled omeprazole 20 mg PO DAILY 90 caps 1RF acetaminophen ER 650 mg PO Q12H 30 days 60 tabs 6RF M19.049 - Primary osteoarthritis, unspecified hand cholecalciferol (vitamin D3) 50 mcg PO DAILY 90 days 90 caps 1RF E55.9 - Vitamin D deficiency, unspecified levothyroxine 100 mcg PO DAILY 90 days 90 tabs 1RF E03.9 - Hypothyroidism, unspecified Discontinued atorvastatin Discontinued Reason: Doctor's Order 80 mg PO BEDTIME 90 days 90 tabs 2RF E11.42 - Type 2 diabetes mellitus with diabetic polyneuropathy Patient Instructions: Goal: A1c to be below 7.0, LDL to be below 100 Barriers: Adherence to physical activity and healthy eating habits, adherence to medication
[2024-08-12 14:04] VITALS: BP 130/72; PULSE 86; TEMP 36.5; O2SAT 98
== END 2024-08-12 14:43 | disposition home or self-care (01) ==
LOC: HO.HMCH 13:57
PROVIDERS: PCP Physician Assistant; Visit Provider Physician Assistant
DX: E11.42 Type 2 diabetes mellitus with diabetic polyneuropathy (principal); E78.5 Hyperlipidemia, unspecified; E03.9 Hypothyroidism, unspecified; M13.0 Polyarthritis, unspecified; E55.9 Vitamin D deficiency, unspecified

== ENCOUNTER → 2024-08-12 13:57 | Outpatient (BNVA) | payer MEDICARE, SELFPAY | PROVIDERS: PCP Physician Assistant; Visit Provider Physician Assistant | DX: E11.42 Type 2 diabetes mellitus with diabetic polyneuropathy (principal); E78.5 Hyperlipidemia, unspecified; E66.9 Obesity, unspecified; E03.9 Hypothyroidism, unspecified; M13.0 Polyarthritis, unspecified; E55.9 Vitamin D deficiency, unspecified | CPT/HCPCS: 96127; 99212 ==

== ENCOUNTER 2024-08-21 10:23 | Outpatient (AMB) | payer MEDICARE, SELFPAY ==
--- NOTE | 2024-08-21 10:25 | A.OFFVIS_ITS ---
Vital Signs 08/21/24 10:32 Height 5 ft 3 in Weight 173 lb BMI 30.6 BP 156/84 H Blood Pressure Location Rt brachial Position Sitting Pulse 80 Pulse Source Pulse Oximeter Pulse Oximetry (%) 96 Oxygen Delivery Method Room Air Intake Visit Reasons: s/p egd/colon PT N/S last appt Intake Note: ESTABLISHED PATIENT for s/p duo FUV. GERD mgmt. Chief Complaint; Allergies No Known Allergies [No Known Allergies*] Allergy (Verified 08/21/24 10:25) HPI HPI s/p egd/colon PT N/S last appt: Details: LAST VISIT 10/31/2023 Tubular adenoma of colon Screen for colon cancer Plan Patient denies any GI, cardiac or respiratory symptoms.? Denies any issues with anesthesia in the past.? Denies any history of sleep apnea.? No history infectious diseases in the past or present.? On low-dose up sprain.? No familyl history of colon cancer. Tubular adenoma in 2018. Patient denies melena, hematochezia, unintentional weight loss or ribbon like stools.? Discussed at length the pre-procedure,? prep, diet & medications as well as what to expect prior, during and after the procedure.?? Stressed the importance of good bowel prep.? Recommended the use of Vaseline or Calmoseptine OTC & baby wipes with bowel movements to promote comfort.? ?Patient verbalizes understanding and agrees to plan of care.? She was given the opportunity to ask questions and all questions answered.? We will see her after the procedure.? UPPER ENDOSCOPY AND COLONOSCOPY 05/20/2024 Upper endoscopy Findings: Larynx: Normal Esophagus: GE junction at 32 cms, hiatal hernia 32 to 35 cms. A 1 cms tongue of suspected Barretts at GE junction - biopsies were obtained Stomach: Moderate diffuse gastric erythema - biopsies were obtained from the antrum. Grade 2 flap valve on retroflexed examination of the cardia. Duodenum: Normal bulb and descending duodenum Intervention: Biopsies as noted above Colonoscopy Findings: Terminal Ileum: Not evaluated Cecum: Normal Ascending Colon: Normal Transverse Colon: Normal Descending Colon: Normal Sigmoid Colon: A 4-5 mm sessile polyp - removed with a cold snare. Moderate diverticulosis Rectum: Normal Ano-rectum: Small internal hemorrhoids Colon preparation: Excellent, after some irrigation. [place] Bowel Preparation Scale Right colon; 3 Transverse colon: 3 Left colon; 3 (0 = Unprepared colon segment with mucosa not seen due to solid stool that cannot be cleared. 1 = Portion of mucosa of the colon segment seen, but other areas of the colon segment not well seen due to staining, residual stool and/or opaque liquid. 2 = Minor amount of residual staining, small fragments of stool and/or opaque liquid, but mucosa of colon segment seen well. 3 = Entire mucosa of colon segment seen well with no residual staining, small fragments of stool or opaque liquid) Impression and Post Procedure Diagnosis: Endoscopy Findings: ESOPHAGUS: hiatal hernia 32 to 35 cms. A 1 cms tongue of suspected Barretts at GE junction - biopsies were obtained STOMACH: Diffuse gastritis DUODENUM: Normal Colonoscopy Findings: One small polyp was removed Moderate diverticulosis seen in the sigmoid colon Small hemorrhoids on retroflexed exam. Plan: Repeat Colonoscopy in 5 years if polyps are adenomatous and due to history of adenomatous colon polyps Above findings were reviewed with the patient and relevant handouts were given and the discharge area. BIOPSIES SHOWED: A. Stomach, antrum, biopsy: Antral-type mucosa with mild chronic inactive inflammation; no Helicobacter organisms seen. B. GE junction, biopsy: - Cardiofundic-type mucosa with mild chronic inactive inflammation; no intestinal metaplasia seen. - Squamous mucosa within normal limits. C. Colon, sigmoid, polypectomy: No tissue present. Letter sent advising repeat colonoscopy in 5 years Patient placed on the colonoscopy recall list. TODAY'S VISIT Patient is here today for follow-up and to discuss upper endoscopy and colonoscopy results. Patient reports that she has been feeling well since procedure. Denies any dyspepsia, dysphagia or odynophagia. Denies any issues with that prep, anesthesia or procedure itself. Patient denies any melena, hematochezia. Sigmoid colon polypectomy showed node tissue, however patient had tubular adenoma her last colonoscopy and recommendation was made for 5 years follow-up. Patient reports to be doing well. Normal bowel movements. No acid reflux. Symptoms control well with omeprazole. Patient has good appetite and denies any GI concerning symptoms. PFS Medical History Cystocele Obesity due to excess calories Carpal tunnel syndrome Arthritis Colon polyps Hypothyroidism Type 2 diabetes mellitus with diabetic polyneuropathy Hyperlipidemia LDL goal <100 Surgical History H/O colonoscopy (~2017) History of endoscopy (~2018) History of total abdominal hysterectomy History of total vaginal hysterectomy (TVH) Hx of breast biopsy History of section History of hysterectomy Family History Father Esophageal cancer Mother No problems noted. Maternal Grandmother Cancer Paternal Grandfather Cancer Leukemia Maternal Aunt Cancer Paternal Uncle Cancer Social History Household Members: Spouse and Children Household Members Other:: son, Housing: House Alcohol intake: never Patient Tobacco Use Status: Former Tobacco user Tobacco use type: Cigarette e-Cigarette/Vaping Use: Never Used Second Hand Smoke Exposure: No service: No Current occupational status: unemployed and disabled Cognitive needs: No Hearing needs: No Vision needs: Yes Female Reproductive History Menstrual Age of Menarche: 13 Review of Systems Const Denies weight gain and Denies weight loss ENT Reports no additional complaints, Denies dysphagia and Denies odynophagia Card Reports no additional complaints Resp Reports no additional complaints GI Denies abdominal pain, Denies belching, Denies melena, Denies bloating, Denies change in bowel habits, Denies dysphagia, Denies excessive flatus, Denies dyspepsia, Denies heartburn, Denies diarrhea, Denies loose stools, Denies nausea, Denies odynophagia and Denies vomiting Reports no additional complaints Musc Reports no additional complaints Neuro Reports no additional complaints Psych Reports no additional complaints Endo Reports no additional complaints Physical Exam Vital Signs: Last Vital Signs Pulse 80 08/21/24 10:32 BP 156/84 H 08/21/24 10:32 Pulse Ox 96 08/21/24 10:32 Oxygen Delivery Method Room Air 08/21/24 10:32 BMI result Body Mass Index 30.6 Const General: healthy appearing and no acute distress Nutritional Appearance: obese Orientation/consciousness: patient oriented x3 Resp Effort & Inspection: normal respiratory effort, able to speak in complete sentences, no tracheal deviation and symmetric chest movement Auscultation: clear to auscultation bilaterally Cardio Rate: regular rate GI Inspection: Yes normal to inspection, No distended and Yes obesity Palpation (GI): Soft to palpation, not firm, nontender and No hepatosplenomegaly present Auscultation: normal bowel sounds General: Yes no CVA tenderness Back/Spine/Pelvis Back: no CVA tenderness Skin General skin exam: elasticity normal, turgor normal and dry skin Neuro General: patient oriented x3 Psych Appearance: grossly normal Mental Status: mental status grossly normal Assessment & Plan Assessment & Plan (1) Status post colonoscopy: Code(s): Z98.890 - Other specified postprocedural states (2) GERD (gastroesophageal reflux disease): Code(s): K21.9 - Gastro-esophageal reflux disease without esophagitis Qualifiers: Esophagitis presence: without esophagitis Qualified Code(s): K21.9 - Gastro-esophageal reflux disease without esophagitis Plan Patient will follow-up in our office as needed. Colonoscopy will be repeated in 5 year due to previous history of tubular adenoma. Patient will call our office if she will have any GI concerning symptoms. Can continue omeprazole daily. Avoid dietary triggers in late night snacking. Patient however was encouraged to call our office if she will have any GI concerning symptoms. She is agreeable to this plan and verbalizes understanding of instructions. She was given the opportunity to ask questions and all questions answered. Thank you for allowing me to participate in her care Coding Level of Care Code Est Pt Level 3 (10273) Diagnoses Status post colonoscopy Z98.890 Gastroesophageal reflux disease without esophagitis K21.9 Esophagitis presence: without esophagitis Time Spent (min) 25 Comment 15 minutes spent with patient and additional 10 minutes spent reviewing her records
[2024-08-21 10:32] VITALS: BP 156/84; PULSE 80; O2SAT 96; BMI 30.6
== END 2024-08-21 10:57 | disposition home or self-care (01) ==
LOC: HO.HGI 10:24
PROVIDERS: PCP Physician Assistant; Visit Provider Nurse Practitioner Family
DX: Z98.890 Other specified postprocedural states (principal); K21.9 Gastro-esophageal reflux disease without esophagitis
CPT/HCPCS: 99213

== ENCOUNTER → 2024-08-21 10:23 | Outpatient (BNVA) | payer MEDICARE, SELFPAY | PROVIDERS: PCP Physician Assistant; Visit Provider Nurse Practitioner Family | DX: K21.9 Gastro-esophageal reflux disease without esophagitis (principal); Z98.890 Other specified postprocedural states | CPT/HCPCS: 99212 ==

== ENCOUNTER 2025-01-13 11:07 | Outpatient (REF) | payer MEDICARE, SELFPAY ==
[2025-01-13 11:46] LABS: Hematocrit 36.8 % (37.0-47.0); Hemoglobin 12.7 g/dl (12.0-16.0); Mean Corpuscular HGB Conc 34.5 g/dl (31.0-35.0); Mean Corpuscular Hemoglobin 31.1 pg (27.0-33.0); Mean Corpuscular Volume 90.0 fL (80.0-98.0); NRBC Abs Auto 0.000 X10*3/uL (0.0-0.012); NRBC Pct Auto 0.0 /100WBC (0.0-0.2); Platelet Count 267 X10*3/uL (160-400); Red Blood Count 4.09 X10*6/uL (4.20-5.50); White Blood Count 6.8 X10*3/uL (4.8-10.8)
[2025-01-13 12:05] LABS: Hemoglobin A1C 188.5618 umol/L; Total Hemoglobin (HGBA1C) 3355.5605 umol/L
[2025-01-13 12:35] LABS: Alanine Aminotransferase 11 U/L (0-31); Albumin Level 4.2 g/dL (3.5-5.0); Alkaline Phosphatase 126 U/L (39-117); Anion Gap 10 (12-20); Aspartate Amino Transferase 23 U/L (5-31); Blood Urea Nitrogen 11 mg/dL (9-16); Calcium 9.3 mg/dL (8.4-10.2); Carbon Dioxide 26 mmol/L (22-29); Chloride 107 mmol/L (96-108); Cholesterol 232 mg/dL (<200); Estimated Glomerular Filt Rate > 60; HDL Cholesterol 30 mg/dL (>40); Potassium 4.4 mmol/L (3.3-5.1); Sodium 139 mmol/L (135-145); Total Protein 7.5 g/dL (6.5-8.0); Triglycerides 261 mg/dL (<150)
== END 2025-01-13 11:08 | disposition home or self-care (01) ==
LOC: HO.LAB 11:07
PROVIDERS: PCP Physician Assistant; Visit Provider Physician Assistant
DX: E11.42 Type 2 diabetes mellitus with diabetic polyneuropathy (principal); E03.9 Hypothyroidism, unspecified; E78.5 Hyperlipidemia, unspecified
CPT/HCPCS: 36415; 80053; 80061; 83036; 84443; 85027

== ENCOUNTER 2025-01-14 13:15 | Outpatient (AMB) | payer MEDICARE, SELFPAY ==
--- NOTE | 2025-01-14 13:16 | MHC.PC.OV ---
Vital Signs 01/14/25 13:18 Height 5 ft 3 in Weight 167 lb BMI 29.6 BP 130/68 Blood Pressure Location Lt brachial Position Sitting Pulse 83 Pulse Source Pulse Oximeter Temp 97.1 F Temp Source Temporal Artery Scan Pulse Oximetry (%) 96 Oxygen Delivery Method Room Air Intake Visit Reasons: RT hand pain Intake Note: Patient is here to follow up on Right hand pain. 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 Hypothyroid: Patient's most recent TSH stable. She is adherent to the use of levothyroxine on a daily basis. DMII:? Most recent fasting blood sugar showing elevation. Most recent A1c slightly at 7.3. Has gained a small amount of weight since last office visit. Does admit to dietary indiscretion. .. .. Osteoarthritis:? She does use Tylenol arthritis with decent affect on reducing her pain.? She has interested in starting an NSAID on an as needed basis for polyarthralgia .. Hyperlipidemia: Patient's most recent fasting lipid panel showing elevated triglycerides and total cholesterol. She admits to being consistent with the use of her atorvastatin for some unclear reason. HER LIPID PANEL CONTINUES TO BE ELEVATED WITH AN LDL AT 150 AND TOTAL CHOLESTEROL 230. WILL INCREASE HER ATORVASTATIN TO 80 MG Goal LDL to be below 100 Laboratory Tests 08/09/24 01/13/25 12:06 11:18 RBC 4.09 L Creatinine 0.72 Fasting Glucose 172 H Hemoglobin A1c % 7.2 H 7.3 H Triglycerides 251 H 261 H LDL Cholesterol, C alc 169 H 150 H TSH 3.15 0.91 PFSH Medical History Cystocele Obesity due to excess calories Carpal tunnel syndrome Arthritis Colon polyps Hypothyroidism Type 2 diabetes mellitus with diabetic polyneuropathy Hyperlipidemia LDL goal <100 Surgical History H/O colonoscopy (~2017) History of endoscopy (~2017) History of total abdominal hysterectomy History of total vaginal hysterectomy (TVH) Hx of breast biopsy History of section History of hysterectomy Family History Father Esophageal cancer Mother No problems noted. Maternal Grandmother Cancer Paternal Grandfather Cancer Leukemia Maternal Aunt Cancer Paternal Uncle Cancer Social History Household Members: Spouse and Children Household Members Other:: son, Housing: House Alcohol intake: never Patient Tobacco Use Status: Former Tobacco user Tobacco use type: Cigarette e-Cigarette/Vaping Use: Never Used Second Hand Smoke Exposure: Yes service: No Current occupational status: unemployed and disabled Cognitive needs: No Hearing needs: No Vision needs: Yes Female Reproductive History Menstrual Age of Menarche: 13 Questionnaire PHQ-9 Over the last 2 weeks, how often have you been bothered by any of the following problems? 1. Little interest or pleasure in doing things: several days 2. Feeling down, depressed, or hopeless: several days 3. Trouble falling or staying asleep, or sleeping too much: not at all 4. Feeling tired or having little energy: several days 5. Poor appetite or overeating: several days 6. Feeling bad about yourself - or that you are a failure or have let yourself or your family down: not at all 7. Trouble concentrating on things, such as reading the newspaper or watching television: not at all 8. Moving or speaking so slowly that other people could have noticed. Or the opposite - being so fidgety or restless that you have been moving around a lot more than usual: several days 9. Thoughts that you would be better off or of hurting yourself in some way: not at all Total score: 5 Depression Screening Interpretation: Positive Depression Screening Follow-up: Existing condition Depression Screening Done: Yes 67158 - PHQ-9 Billing: Yes Source: Developed by Drs. Mark Gonzalez, Carole Bang, Job Verduzco and colleagues, with an educational clare from [employer]. Thrive Questionnaire Date Thrive assessed: 08/12/24 I am a: Patient What is your living situation today?: I have a steady place to live Within the past 12 months, did the food you bought not last and you didn't have the money to get more?: Never true Within the past 12 months, did you worry whether your food would run out before you got money to buy more?: Never true Do you have trouble paying for medicines?: No Do you have trouble getting transportation to medical appointments?: No Do you have trouble paying your heating and electricity bill?: No Do you have trouble taking care of your child, family member or friend?: No Do you have trouble with day-to-day activities such as bathing, preparing meals, shopping, managing finances, etc.?: I choose not to answer this question Are you currently unemployed and looking for a job?: No Are you interested in more education?: No Please select the resources that you would like help with: None Currently or been in a relationship where the following occur: No concerns reported THRIVE Score: 0 AUDIT C Alcohol Use Questionnaire (AUDIT-C) 1. How often do you have a drink containing alcohol?: Never Total Score: 0 ADRIAN-7 AMB Questionnaire ADRIAN-7 Date ADRIAN - 7 assessed: 08/12/24 Feeling nervous, anxious, or on edge: 1 = Several days Not being able to stop or control worryin = Several days Worrying too much about different things: 0 = Not at all Trouble relaxin = Several days Being so restless that it is hard to sit still: 1 = Several days Becoming easily annoyed or irritable: 1 = Several days Feeling afraid as if something awful might happen: 0 = Not at all Total ADRIAN-7 score (0-4 normal; 5-9 mild; 10-14 moderate; 15-21 severe): 5 Source: Developed by Drs. Mark Gonzalez, Carole Bang, Job Verduzco and colleagues, with an educational clare from [employer]. ADRIAN-7 Assessment Billing ADRIAN-7 Assessment Tool: ADRIAN-7 Assessment 82851 Physical exam (Primary Care) Vital Signs: Last Vital Signs Temp 97.1 F 01/14/25 13:18 Pulse 83 01/14/25 13:18 BP 130/68 01/14/25 13:18 Pulse Ox 96 01/14/25 13:18 Oxygen Delivery Method Room Air 01/14/25 13:18 BMI result Body Mass Index 29.6 Tobacco/Smoking Status: Tobacco use Status Tobacco use date assessed 01/14/25 01/14/25 13:21 Patient Tobacco Use Status Former Tobacco user 01/14/25 13:21 Tobacco use type Cigarette 01/14/25 13:21 e-Cigarette/Vaping Use Never Used 01/14/25 13:21 PHQ-9: PHQ-9 Score PHQ-9: Total score 5 01/14/25 13:21 Depression Screening Interpretation: Positive Depression Screening Follow-up: Existing condition Thrive Assessment: Date of Thrive Assessment Date Thrive assessed 08/12/24 01/14/25 13:21 Currently or been in a relationship where the following occur: No concerns reported Coding Level of Care Code Est Pt Level 4 (80892) Diagnoses Type 2 diabetes mellitus with diabetic polyneuropathy, without long-term current use of insulin E11.42 Diabetes mellitus half-way insulin use: without half-way use Hyperlipidemia LDL goal <100 E78.5 Hypothyroidism, unspecified type E03.9 Hypothyroidism type: unspecified Polyarthritis M13.0 Additional Codes PHQ-9 - 33806 - PHQ-9 Billing: Yes ([id number]) ADRIAN-7 Assessment Billing - ADRIAN-7 Assessment Tool: ADRIAN-7 Assessment 03553 ([id number]) Assessment & Plan Assessment & Plan (1) Type 2 diabetes mellitus with diabetic polyneuropathy: Code(s): E11.42 - Type 2 diabetes mellitus with diabetic polyneuropathy Category: Medical Qualifiers: 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 Her A1c did elevate at 7.3. She does admit to some dietary indiscretion over the winter. Will continue her current dose of metformin 750 mg. A1c is to remain below 7.0 (2) Hyperlipidemia LDL goal <100: Code(s): E78.5 - Hyperlipidemia, unspecified Category: Medical Plan: Patient's most recent lipid panel showing very elevated total cholesterol and triglycerides. She admits to being consistent with her use of statin therapy. Will increase her atorvastatin to 80 mg. She promises to use the medication on a daily basis Goal LDL is to be below 100 (3) Hypothyroidism: Code(s): E03.9 - Hypothyroidism, unspecified Category: Medical Qualifiers: Hypothyroidism type: unspecified Qualified Code(s): E03.9 - Hypothyroidism, unspecified Plan: Most recent TSH stabilized with current dose of levothyroxine. Continues on levothyroxine 100 mcg daily (4) Polyarthritis: Code(s): M13.0 - Polyarthritis, unspecified Category: Medical Plan: Patient continues to use acetaminophen 650 with good relief of her polyarthritis pain. Will add on p.r.n. use of NSAID for her arthritic pain. We did discuss the possible side effects of NSAIDs including GERD and elevations in blood pressure. Orders: Orders Comprehensive [place]. Panel Fast 6 Months E11.42 - Type 2 diabetes mellitus with diabetic polyneuropathy Microalbumin, Random (w Creat) Today E11.42 - Type 2 diabetes mellitus with diabetic polyneuropathy Lipid Panel 6 Months E78.5 - Hyperlipidemia, unspecified Complete Blood Count no Diff 6 Months E11.42 - Type 2 diabetes mellitus with diabetic polyneuropathy Medications: New atorvastatin (Lipitor) 80 mg PO DAILY 90 tabs 1RF 90 days E78.5 - Hyperlipidemia, unspecified On Hold atorvastatin Hold Comment: Doctor's Order 40 mg PO DAILY 90 tabs 1RF 90 days E78.5 - Hyperlipidemia, unspecified
[2025-01-14 13:18] VITALS: BP 130/68; PULSE 83; TEMP 36.2; O2SAT 96; BMI 29.6
== END 2025-01-14 14:50 | disposition home or self-care (01) ==
LOC: HO.HMCH 13:16
PROVIDERS: PCP Physician Assistant; Visit Provider Physician Assistant
DX: E11.42 Type 2 diabetes mellitus with diabetic polyneuropathy (principal); E78.5 Hyperlipidemia, unspecified; E03.9 Hypothyroidism, unspecified; M13.0 Polyarthritis, unspecified

== ENCOUNTER → 2025-01-14 13:15 | Outpatient (BNVA) | payer MEDICARE, SELFPAY | PROVIDERS: PCP Physician Assistant; Visit Provider Physician Assistant | DX: E11.42 Type 2 diabetes mellitus with diabetic polyneuropathy (principal); E78.5 Hyperlipidemia, unspecified; E03.9 Hypothyroidism, unspecified; M13.0 Polyarthritis, unspecified | CPT/HCPCS: 96127; 99212 ==